=== PATIENT | male | born 1955 | race Caucasian/White ===

== ENCOUNTER → 2018-02-25 11:46 | Outpatient (CLI) | payer OTHER, SELFPAY ==
[2018-02-25 13:03] LABS: Appearance Urine UA CLEAR; Bilirubin Urine UA NEGATIVE (NEGATIVE); Color Urine UA YELLOW; Glucose Urine UA NEGATIVE (Normal); Ketones Urine UA NEGATIVE (NEGATIVE); Leukocyte Esterase Urine UA 2+ (NEGATIVE); Nitrite Urine UA POSITIVE (Negative); Occult Blood Urine UA TRACE-LYSED (Negative); Protein Urine UA TRACE (Negative); Specific Gravity Urine UA <=1.005 (1.000-1.035)
[2018-02-25 13:19] LABS: Bacteria Urine Many (>30); RBC Urine 0-1/HPF (0-5/HPF); Urine Comments CULTURE ORDERED; WBC Urine 30-100/HPF (0-5/HPF)
== END ==
PROVIDERS: Family Provider Family Medicine; PCP Family Medicine; Visit Provider Family Medicine
DX: R31.9 Hematuria, unspecified (principal)
CPT/HCPCS: 81001; 87077; 87086; 87186

== ENCOUNTER 2018-02-26 11:52 | Observation (INO) | payer OTHER, SELFPAY ==
[2018-02-26] VITALS (8 sets, daily range): BP systolic 116–161; BP diastolic 72–87; PULSE 55–62; RESP 14–20; TEMP 36.1–37.1; O2SAT 95–99; BMI 30.9
--- NOTE | 2018-02-26 12:31 | ED_ITS ---
HPI - Male Genitourinary General Chief complaint: Urogenital-Male Stated complaint: IV ANTIBIOTICS Time Seen by Provider: 02/26/18 12:07 Source: patient Mode of arrival: ambulatory Limitations: no limitations History of Present Illness HPI Narrative: Patient is a 62-year-old male sent in from primary concern for UTI and prostatitis. He has had fevers confusion and overall weakness for the last 2-3 days. Along with dysuria, urgency and frequency along with nocturia 8 times night. He actually had blood work yesterday which showed worsening creatinine and elevated PSA. His urine actually did grow gram-negative bacilli. He comes in today he has not yet started his antibiotics but overall just feeling weak and tired. His noticed that he is not getting up and going to the restroom and may be a little more confused than normal. I did speak to the primary who did a prostate exam yesterday she felt that it was the right side was slightly in the large but not really bother the. He is noted to have an elevated PSA of 9.5. Related Data Home Medications Medication Instructions Recorded Confirmed allopurinol 300 mg PO DAILY 02/26/18 02/26/18 aspirin 81 mg PO DAILY 02/26/18 02/26/18 atorvastatin 10 mg PO QPM 02/26/18 02/26/18 cholecalciferol (vitamin D3) 1,000 unit PO QPM 02/26/18 02/26/18 [Vitamin D3] divalproex [Depakote] 1 tab PO QAM 02/26/18 02/26/18 divalproex [Depakote] 2 tab PO QPM 02/26/18 02/26/18 latanoprost 1 drp OPHTHALMIC (EYE) QPM 02/26/18 02/26/18 timolol maleate 1 drp EYE-RIGHT QAM 02/26/18 02/26/18 Allergies Allergy/AdvReac Type Severity Reaction Status Date / Time bee venom protein (honey bee) Allergy Verified 02/26/18 13:02 diclofenac [From Flector] Allergy Verified 02/26/18 13:02 furosemide [From Lasix] AdvReac Verified 02/26/18 13:02 indomethacin [From Indocin] AdvReac Verified 02/26/18 13:02 lisinopril AdvReac Verified 02/26/18 13:02 Review of Systems Review of Systems All systems reviewed & are unremarkable except as noted in HPI and below Constitutional Reports chills, Reports fatigue, Reports fever(s) and Reports lethargy Cardiovascular Denies chest pain, Denies claudication, Denies dyspnea and Denies dyspnea on exertion Respiratory Denies cough, Denies dyspnea, Denies dyspnea on exertion and Denies wheezing Gastrointestinal Gastrointestinal: Denies abdominal pain, Denies change in bowel habits, Denies diarrhea, Denies nausea and Denies vomiting Genitourinary Reports as per HPI Musculoskeletal Denies back pain, Denies muscle weakness, Denies numbness and Denies tingling Neurologic Denies numbness and Denies tingling Endocrine Reports fatigue Allergic/Immunologic Denies wheezing [facility] Medical History Bipolar 1 disorder (Acute) Glaucoma (Acute) Gout (Acute) Exam Initial Vital Signs Initial Vital Signs: Vital Signs Temperature 96.9 F L 02/26/18 11:55 Pulse Rate 56 L 02/26/18 11:55 Respiratory Rate 14 02/26/18 11:55 Blood Pressure 149/80 H 02/26/18 11:55 Pulse Oximetry 97 02/26/18 11:55 GENERAL: Week alert male in no acute distress HEENT: Head atraumatic,EOMI, pupils reactive, neck is supple no meningeal sign CARDIOVASCULAR: Regular rate and rhythm without murmurs, rubs or gallops. RESPIRATORY: Breath sounds equal bilaterally, no wheezes rales or rhonchi. ABDOMEN: Soft, nontender. Normoactive bowel sounds all 4 quadrants. No guarding or rebound. : No CVA tenderness EXTREMITIES: Normal range of motion, no clubbing or edema. Neurovascularly intact NEUROLOGICAL: Alert and oriented x4. Cranial nerves II through XII grossly intact. SKIN: Warm, dry, no laceration, no petechiae, no rashes or lesions. Course Orders Ordered: ED Orders 02/26/18 12:32 Complete Blood Count AUTO DIFF Stat Comprehensive Metabolic Panel Stat Lactate (Lactic Acid) Stat Partial Thromboplastin Time Stat Procalcitonin Stat Prothrombin Time INR Stat 02/26/18 13:25 Blood Culture Stat Discontinued Medications Sodium Chloride (Normal Saline 0.9%) 1,000 mls @ 1,000 mls/hr IV BOLUS ONE Stop: 02/26/18 13:30 Last Infusion: 02/26/18 14:14 Dose: 0 mls/hr Admin: 02/26/18 12:53 Dose: 1,000 mls/hr Levofloxacin (Levaquin) 750 mg in 150 mls @ 100 mls/hr IV NOW ONE Stop: 02/26/18 14:50 Last Infusion: 02/26/18 14:34 Dose: 100 mls/hr Admin: 02/26/18 13:27 Dose: 100 mls/hr Vital Signs - 8 hr 02/26/18 11:55 02/26/18 13:18 02/26/18 14:11 Temperature 96.9 F L Pulse Rate 56 L 61 58 L Respiratory Rate 14 15 17 Blood Pressure 149/80 H Blood Pressure [Right Arm] 156/84 H 147/84 H Pulse Oximetry 97 99 99 02/26/18 14:53 Temperature 97.0 F L Pulse Rate 55 L Respiratory Rate 18 Blood Pressure 148/86 H Blood Pressure [Right Arm] Pulse Oximetry 95 MDM - Male Genitourinary Lab Data Attestation: I reviewed the patient's lab results. Result diagrams: 02/26/18 12:32 02/26/18 12:32 Lab Results 02/26/18 02/26/18 02/26/18 Range/Units 12:32 12:32 12:32 WBC 2.7 L (4.5-11.0) X10^3/uL RBC 4.15 L (4.5-5.9) X10^6/uL Hgb 12.8 L (13.5-17.5) g/dL Hct 38.7 L (41-53) % MCV 93.3 (80-100) fL MCH 30.8 (26-34) PG MCHC 33.0 (30-36) % RDW 15.5 H (11.6-14.8) % Plt Count 141 L (150-400) X10^3/uL Neut % (Auto) Not Reportable Lymph % (Auto) Not Reportable [place] % (Auto) Not Reportable Eos % (Auto) Not Reportable Baso % (Auto) Not Reportable Total Counted 100 Seg Neutrophils % 45.0 (38-70) % Band Neutrophils % 11.0 H (3-7) % Lymphocytes % (Manual) 23.0 L (25-45) % Monocytes % (Manual) 19.0 H (2-11) % Eosinophils % (Manual) 1.0 L (2-4) % Basophils % (Manual) 1.0 (0-1) % Neutrophils # (Manual) 1512 L (7214-9207) /uL RBC Morphology Normal morphology PT 12.0 (10.1-12.7) SECONDS INR 1.1 (0.9-1.3) APTT 29 (26.4-36.2) SECONDS Sodium (137-145) mmol/L Potassium (3.4-5.1) mmol/L Chloride (98-107) mmol/L Carbon Dioxide (22-32) mmol/L BUN (9-20) mg/dL Creatinine (0.66-1.25) mg/dL Estimated GFR (>60) mL/min BUN/Creatinine Ratio (6-22) Glucose (80-110) mg/dL Lactate (0.7-2.1) mmol/L Calcium (8.4-10.2) mg/dL Total Bilirubin (0.2-1.3) mg/dL AST (17-59) IU/L ALT (21-72) IU/L Alkaline Phosphatase (38-126) U/L Total Protein (6.3-8.2) g/dL Albumin (3.5-5.0) g/dL Globulin (1.7-4.1) g/dL Albumin/Globulin Ratio (1.0-2.8) Procalcitonin 0.59 H (<0.5) ng/mL 02/26/18 02/26/18 Range/Units 12:32 12:32 WBC (4.5-11.0) X10^3/uL RBC (4.5-5.9) X10^6/uL Hgb (13.5-17.5) g/dL Hct (41-53) % MCV (80-100) fL MCH (26-34) PG MCHC (30-36) % RDW (11.6-14.8) % Plt Count (150-400) X10^3/uL Neut % (Auto) Lymph % (Auto) [place] % (Auto) Eos % (Auto) Baso % (Auto) Total Counted Seg Neutrophils % (38-70) % Band Neutrophils % (3-7) % Lymphocytes % (Manual) (25-45) % Monocytes % (Manual) (2-11) % Eosinophils % (Manual) (2-4) % Basophils % (Manual) (0-1) % Neutrophils # (Manual) (4054-5453) /uL RBC Morphology PT (10.1-12.7) SECONDS INR (0.9-1.3) APTT (26.4-36.2) SECONDS Sodium 145 (137-145) mmol/L Potassium 4.4 (3.4-5.1) mmol/L Chloride 108 H (98-107) mmol/L Carbon Dioxide 26 (22-32) mmol/L BUN 32 H (9-20) mg/dL Creatinine 2.00 H (0.66-1.25) mg/dL Estimated GFR 34.0 L (>60) mL/min BUN/Creatinine Ratio 16.0 (6-22) Glucose 101 (80-110) mg/dL Lactate 0.9 (0.7-2.1) mmol/L Calcium 9.3 (8.4-10.2) mg/dL Total Bilirubin 0.4 (0.2-1.3) mg/dL AST 80 H (17-59) IU/L ALT 99 H (21-72) IU/L Alkaline Phosphatase 59 (38-126) U/L Total Protein 6.4 (6.3-8.2) g/dL Albumin 3.6 (3.5-5.0) g/dL Globulin 2.8 (1.7-4.1) g/dL Albumin/Globulin Ratio 1.3 (1.0-2.8) Procalcitonin (<0.5) ng/mL MDM Narrative Medical decision making narrative: Patient is leukopenic similar to yesterday. In 2017 he had a white count of 6.7. So this does not appear chronic. Yesterday was Creatine 2.11 today is is improved to 2.0. According to primary baseline is about 1.9. Not too worried about his kidney's today. Lactic acid is normal. Patient is not tachycardic or hypotensive doen't appear septic. However elevated procalcitonin and gram-negative bacteria in his urine likely UTI prostatitis. Patient has confusion weakness. Family uncomfortable taking him. Dr. Hernandez has accepted him to observation Discharge Plan Departure Patient Disposition: Admitted as Observation Clinical Impression: Urinary tract infection, Prostatitis Discharge Date/Time: 02/26/18 14:37 Interventions: ED Discharge Assessment Last Done: 02/26/18 14:37 Admit Date/Time: 02/26/18 14:17 Admit Provider: Susanne Hernandez
[2018-02-26] MEDS: SODIUM CHLORIDE 0.9% 1,000 ML 1000 ML IV (12:53)
--- NOTE | 2018-02-26 12:54 | PC.NURSE ---
Was seen yesterday by Savioana Purcell doctor. 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 Minerva worse today and was told to come to ED. Feeling exhausted, appetite is down, having episodes of sweats and chills.
[2018-02-26 13:01] LABS: Hematocrit 38.7 % (41-53); Hemoglobin 12.8 g/dL (13.5-17.5); Mean Corpuscular Hemoglobin 30.8 PG (26-34); Mean Corpuscular Volume 93.3 fL (80-100); Platelet Count 141 X10^3/uL (150-400); Red Blood Cell Count 4.15 X10^6/uL (4.5-5.9); Red Cell Distribution Width 15.5 % (11.6-14.8); White Blood Cell Count 2.7 X10^3/uL (4.5-11.0)
[2018-02-26 13:02] LABS: Add Manual Diff / Slide Review YES
[2018-02-26 13:06] LABS: INR 1.1 (0.9-1.3)
[2018-02-26 13:08] LABS: PTT Partial Thromboplastin Tim 29 SECONDS (26.4-36.2)
[2018-02-26 13:11] LABS: Alanine Aminotransferase 99 IU/L (21-72); Albumin 3.6 g/dL (3.5-5.0); Albumin Globulin Ratio 1.3 (1.0-2.8); Alkaline Phosphatase 59 U/L (38-126); Aspartate Aminotransferase 80 IU/L (17-59); Bilirubin Total 0.4 mg/dL (0.2-1.3); Blood Urea Nitrogen 32 mg/dL (9-20); Calcium 9.3 mg/dL (8.4-10.2); Carbon Dioxide 26 mmol/L (22-32); Chloride 108 mmol/L (98-107); Globulin 2.8 g/dL (1.7-4.1); Glucose 101 mg/dL (80-110); HEMOLYSIS < 15 (0-50); Lactate (Lactic Acid) 0.9 mmol/L (0.7-2.1); Potassium 4.4 mmol/L (3.4-5.1); Sodium 145 mmol/L (137-145); Total Protein 6.4 g/dL (6.3-8.2)
[2018-02-26 13:27] LABS: Neutrophils Absolute Manual 1512 /uL (3000-5900); Total Cells Counted 100
[2018-02-26] MEDS: levoFLOXacin 750 MG/150 ML PIGGYBACK 100 MG IV (13:27)
[2018-02-26 13:28] LABS: RBC Morphology Normal Morphology
[2018-02-26 13:46] LABS: Procalcitonin 0.59 ng/mL (<0.5)
--- NOTE | 2018-02-26 16:11 | PM.HP.1 ---
History of Present Illness Date Patient Seen: 02/26/18 Chief complaint: IV ANTIBIOTICS Narrative: Patient presented to his PCP with complaints of dysuria, frequency, and urgency yesterday. He had a prescription for antibiotics but it did not get filled. Patient continued to have fever, rigors, and malaise. As he continued to feel poorly he presented tot he ED for evaluation. The patient was found to have gram negative rods growing in the urine. He was brought into the hospital for observation Patient History Medical History Bipolar 1 disorder (Acute) Glaucoma (Acute) Gout (Acute) Hyperlipidemia (Acute) Family & Social History Social History: household members spouse,family Prior Living Arrangements House Safety & Behavioral: Feels Safe in Current Yes Environment Been Physically Hurt or No Threatened By a Person Suicidal Ideation Description None Suicide Plan Description No Plan Tobacco & Substance use: Smoking Status Former smoker alcohol intake former Meds Home Medications Medication Instructions Recorded Confirmed Type allopurinol 300 mg PO DAILY 02/26/18 02/26/18 History aspirin 81 mg PO DAILY 02/26/18 02/26/18 History atorvastatin 10 mg PO QPM 02/26/18 02/26/18 History cholecalciferol (vitamin D3) 1,000 unit PO QPM 02/26/18 02/26/18 History [Vitamin D3] divalproex [Depakote] 1 tab PO QAM 02/26/18 02/26/18 History divalproex [Depakote] 2 tab PO QPM 02/26/18 02/26/18 History latanoprost 1 drp OPHTHALMIC (EYE) QPM 02/26/18 02/26/18 History timolol maleate 1 drp EYE-RIGHT QAM 02/26/18 02/26/18 History Allergies Allergy/AdvReac Type Severity Reaction Status Date / Time bee venom protein (honey bee) Allergy Verified 02/26/18 13:02 diclofenac [From Flector] Allergy Verified 02/26/18 13:02 shellfish derived AdvReac Intermediate gout Verified 02/26/18 15:36 furosemide [From Lasix] AdvReac Verified 02/26/18 13:02 indomethacin [From Indocin] AdvReac Verified 02/26/18 13:02 lisinopril AdvReac Verified 09/11/18 13:02 Review of Systems Review of Systems All systems reviewed & are unremarkable except as noted in HPI and below Exam Vital Signs (past 8 hours): - 02/26/18 11:55 02/26/18 13:18 02/26/18 14:11 Temperature 96.9 F L Pulse Rate 56 L 61 58 L Respiratory Rate 14 15 17 Blood Pressure 149/80 H Blood Pressure [Right Arm] 156/84 H 147/84 H Pulse Oximetry 97 99 99 02/26/18 14:53 Temperature 97.0 F L Pulse Rate 55 L Respiratory Rate 18 Blood Pressure 148/86 H Blood Pressure [Right Arm] Pulse Oximetry 95 Oxygen Delivery Method Room Air Oxygen Flow Rate 0 Narrative Exam Narrative: HEENT: NC/AT, EOMI, ORohparynx clear, Neck supple without adenopathy Lungs: Clear to auscultation CV: RRR nl Sl S2 Abd: Soft/ non tender non distended, no CVAT EXT: brown discoloration of both lower extremities, no edema or cyanosis Neuro: non focal Objective Labs Result Diagrams: 02/26/18 12:32 02/26/18 12:32 Labs: Laboratory Results - last 24 hr 02/26/18 02/26/18 02/26/18 12:32 12:32 12:32 WBC 2.7 L RBC 4.15 L Hgb 12.8 L Hct 38.7 L MCV 93.3 MCH 30.8 MCHC 33.0 RDW 15.5 H Plt Count 141 L Neut % (Auto) Not Reportable Lymph % (Auto) Not Reportable [place] % (Auto) Not Reportable Eos % (Auto) Not Reportable Baso % (Auto) Not Reportable Total Counted 100 Seg Neutrophils % 45.0 Band Neutrophils % 11.0 H Lymphocytes % (Manual) 23.0 L Monocytes % (Manual) 19.0 H Eosinophils % (Manual) 1.0 L Basophils % (Manual) 1.0 Neutrophils # (Manual) 1512 L RBC Morphology Normal morphology PT 12.0 INR 1.1 APTT 29 Sodium Potassium Chloride Carbon Dioxide BUN Creatinine Estimated GFR BUN/Creatinine Ratio Glucose Lactate Calcium Total Bilirubin AST ALT Alkaline Phosphatase Total Protein Albumin Globulin Albumin/Globulin Ratio Procalcitonin 0.59 H 02/26/18 02/26/18 12:32 12:32 WBC RBC Hgb Hct MCV MCH MCHC RDW Plt Count Neut % (Auto) Lymph % (Auto) [place] % (Auto) Eos % (Auto) Baso % (Auto) Total Counted Seg Neutrophils % Band Neutrophils % Lymphocytes % (Manual) Monocytes % (Manual) Eosinophils % (Manual) Basophils % (Manual) Neutrophils # (Manual) RBC Morphology PT INR APTT Sodium 145 Potassium 4.4 Chloride 108 H Carbon Dioxide 26 BUN 32 H Creatinine 2.00 H Estimated GFR 34.0 L BUN/Creatinine Ratio 16.0 Glucose 101 Lactate 0.9 Calcium 9.3 Total Bilirubin 0.4 AST 80 H ALT 99 H Alkaline Phosphatase 59 Total Protein 6.4 Albumin 3.6 Globulin 2.8 Albumin/Globulin Ratio 1.3 Procalcitonin Assessment & Plan (1) Urinary tract infection: Problem details: Continue Levofloxacin as ordered in the ED Will await culture and sensitivity results Qualifiers: Encounter type: Hematuria presence: without hematuria Indwelling urinary catheter type: Urinary tract infection type: acute cystitis Qualified Code(s): N30.00 - Acute cystitis without hematuria Current visit: Yes Status: Acute (2) Prostatitis: Problem details: Continue levofloxacin as above Qualifiers: Prostatitis type: acute Qualified Code(s): N41.0 - Acute prostatitis Current visit: Yes Status: Acute (3) Bipolar affective disorder: Problem details: Continue depakote Current visit: Yes Status: Acute (4) Hyperlipidemia: Problem details: Continue statin Current visit: Yes Status: Acute (5) Gout: Problem details: Continue allopurinol Current visit: Yes Status: Acute (6) Chronic renal failure, stage 3 (moderate): Problem details: Will follow closely Current visit: Yes Status: Acute Quality VTE Deep Vein Thrombosis/Pulmonary Embolism Present on Admission: No
[2018-02-26] MEDS: DEXTROSE 5%-0.45% NS 1,000 ML 100 ML IV (16:57)
[2018-02-26] MEDS: ATORVASTATIN 10 MG TABLET PO (20:23)
[2018-02-26] MEDS: DIVALPROEX ER 250 MG TAB 1000 MG PO (20:23)
[2018-02-26] MEDS: LATANOPROST 0.005% OPHTH 2.5 ML 1 DROPS EYE-RIGHT (20:23)
--- NOTE | 2018-02-26 22:03 | PC.NURSE ---
Patient note: Marcus admitted to rm 204 around 1500. Ox3, denied pain, conversive with staff members. IV Levaquin brought with him from ER completed. Dr Hernandez in to see patient. IVF infusing as ordered. He is tolerating PO's, voiding and denies needs or concerns.
[2018-02-27 00:40] VITALS: O2SAT 94
--- NOTE | 2018-02-27 00:55 | PC.NURSE ---
Addendum entered by Nicholas Rollins R.N. 02/27/18 06:18: 0600:Pt slept intermittently, declined any medication except Tylenol. Original Note: Retail Assistant Note: 0040: Awake, resting in bed. resting at bedside. IV in place in rt wrist with D5 1/2NS infusing at 100cc/hr. Pt denies pain, states he feels better than yesterday.
[2018-02-27] MEDS: ACETAMINOPHEN 325 MG TABLET 650 MG PO (02:12)
[2018-02-27] MEDS: DEXTROSE 5%-0.45% NS 1,000 ML 100 ML IV (02:57)
[2018-02-27 03:25] VITALS: BP 135/75; PULSE 57; RESP 16; TEMP 36.4; O2SAT 96
[2018-02-27 07:21] VITALS: BP 134/76; PULSE 56; RESP 20; TEMP 36.4; O2SAT 97
[2018-02-27] MEDS: DIVALPROEX ER 250 MG TAB 500 MG PO (08:05)
[2018-02-27] MEDS: ALLOPURINOL 300 MG TABLET PO (08:05)
[2018-02-27] MEDS: TIMOLOL 0.5% OPHTH 1 DROPS EYE-RIGHT (08:05)
[2018-02-27] MEDS: ENOXAPARIN 40 MG/0.4 ML SYRINGE SUBCUT (08:05)
[2018-02-27] MEDS: ASPIRIN EC 81 MG TABLET PO (08:05)
[2018-02-27] MEDS: CHOLECALCIFEROL (VITAMIN D3) 1,000 UNIT TABLET 1000 UNIT PO (08:05)
[2018-02-27 08:16] VITALS: O2SAT 96
--- NOTE | 2018-02-27 08:53 | PM.DS.1 ---
History of Present Illness Chief complaint: IV ANTIBIOTICS Narrative: Patient presented to his PCP with complaints of dysuria, frequency, and urgency yesterday. He had a prescription for antibiotics but it did not get filled. Patient continued to have fever, rigors, and malaise. As he continued to feel poorly he presented tot he ED for evaluation. The patient was found to have gram negative rods growing in the urine. He was brought into the hospital for observation Discharge Providers Date of admission: 02/26/18 14:17 Primary care physician: Jacquelyn Han MD Discharge provider: Susanne Hernandez MD Summary Discharge Diagnosis: Urinary tract infection Prostatitis Bipolar Affective Disorder Hyperlipidemia Glaucoma Hospital Course: Patient was brought into the hospital and placed on levofloxacin. He had no further fever/rigors/or chills His urine grew ECOLI which is pansensitive. He has a prescription from his PCP at the pharmacy for Cipro 500mg twice daily for 7 days. Patient ate breakfast and is deemed appropriate for discharge home. Status at Discharge Functional status at discharge: independent ambulation Overall status at discharge: patient is back to baseline Time Spent with Patient Less than 30 minutes Exam Vital Signs (past 8 hours): - 02/27/18 03:25 02/27/18 07:21 02/27/18 08:16 Temperature 97.5 F L 97.5 F L Pulse Rate 57 L 56 L Respiratory Rate 16 20 Blood Pressure 135/75 134/76 Pulse Oximetry 96 97 96 Oxygen Delivery Method Room Air Oxygen Flow Rate 0 Narrative Exam Narrative: Lungs: Clear to auscultation CV: RRR nl Sl S2 ABd: soft/non tender non distended Ext: no edema Objective Labs Result Diagrams: 02/26/18 12:32 02/26/18 12:32 Labs: Laboratory Results - last 24 hr 02/26/18 02/26/18 02/26/18 12:32 12:32 12:32 WBC 2.7 L RBC 4.15 L Hgb 12.8 L Hct 38.7 L MCV 93.3 MCH 30.8 MCHC 33.0 RDW 15.5 H Plt Count 141 L Neut % (Auto) Not Reportable Lymph % (Auto) Not Reportable [place] % (Auto) Not Reportable Eos % (Auto) Not Reportable Baso % (Auto) Not Reportable Total Counted 100 Seg Neutrophils % 45.0 Band Neutrophils % 11.0 H Lymphocytes % (Manual) 23.0 L Monocytes % (Manual) 19.0 H Eosinophils % (Manual) 1.0 L Basophils % (Manual) 1.0 Neutrophils # (Manual) 1512 L RBC Morphology Normal morphology PT 12.0 INR 1.1 APTT 29 Sodium Potassium Chloride Carbon Dioxide BUN Creatinine Estimated GFR BUN/Creatinine Ratio Glucose Lactate Calcium Total Bilirubin AST ALT Alkaline Phosphatase Total Protein Albumin Globulin Albumin/Globulin Ratio Procalcitonin 0.59 H 02/26/18 02/26/18 12:32 12:32 WBC RBC Hgb Hct MCV MCH MCHC RDW Plt Count Neut % (Auto) Lymph % (Auto) [place] % (Auto) Eos % (Auto) Baso % (Auto) Total Counted Seg Neutrophils % Band Neutrophils % Lymphocytes % (Manual) Monocytes % (Manual) Eosinophils % (Manual) Basophils % (Manual) Neutrophils # (Manual) RBC Morphology PT INR APTT Sodium 145 Potassium 4.4 Chloride 108 H Carbon Dioxide 26 BUN 32 H Creatinine 2.00 H Estimated GFR 34.0 L BUN/Creatinine Ratio 16.0 Glucose 101 Lactate 0.9 Calcium 9.3 Total Bilirubin 0.4 AST 80 H ALT 99 H Alkaline Phosphatase 59 Total Protein 6.4 Albumin 3.6 Globulin 2.8 Albumin/Globulin Ratio 1.3 Procalcitonin Discharge Plan Discharge Plan Discharge Problem: Urinary tract infection, Prostatitis Patient Disposition: Home Under care of provider: Dr. Jacquelyn Han Transportation: Private vehicle Discharge comment: Patient should follow up with his PCP after completion of his antibiotics I certify the postop hospital usp care is medically necessary on a continuing basis for any conditions for which he/ she received care during this hospitalization.: No The receiving facility has agreed to accept transfer and provide medical treatment.: No Discharge Med Rec/Prescriptions Prescriptions: No Action latanoprost 0.005 % Drops 1 drp ophthalmic (eye) QPM RF: 0 atorvastatin 10 mg Tablet 10 mg PO QPM RF: 0 divalproex [Depakote] 500 mg Tablet,Delayed Release (Dr/Ec) 1 tab PO QAM RF: 0 divalproex [Depakote] 500 mg Tablet,Delayed Release (Dr/Ec) 2 tab PO QPM RF: 0 aspirin 81 mg Tablet,Delayed Release (Dr/Ec) 81 mg PO DAILY RF: 0 allopurinol 300 mg Tablet 300 mg PO DAILY RF: 0 cholecalciferol (vitamin D3) [Vitamin D3] 1,000 unit Capsule 1,000 unit PO QPM RF: 0 timolol maleate 0.5 % Drops, Once Daily 1 drp EYE-RIGHT QAM RF: 0 Provider Discharge Instructions Diet: Regular Liquid consistency: Normal/Thin Food texture: Regular Activity: as tolerated Skin/Wound/Dressing Care Report to your healthcare provider any signs of infection, such as:: chills, fever and night sweats Discharge Data Primary Care Provider: Jacquelyn Han Attending Provider: Susanne Hernandez Admroselia Date/Time: 02/26/18 14:17 Quality VTE Deep Vein Thrombosis/Pulmonary Embolism Present on Admission: No
[2018-02-27 09:25] LABS: BUN Creatinine Ratio 16.7 (6-22); Blood Urea Nitrogen 30 mg/dL (9-20); Calcium 8.9 mg/dL (8.4-10.2); Carbon Dioxide 27 mmol/L (22-32); Chloride 108 mmol/L (98-107); Estimated Glomerular Filt Rate 38.4 mL/min (>60); Glucose 115 mg/dL (80-110); HEMOLYSIS < 15 (0-50); Potassium 4.4 mmol/L (3.4-5.1); Sodium 145 mmol/L (137-145)
--- NOTE | 2018-02-27 11:31 | CM.DANOTE ---
DCP Chart Review/Discharge Home Patient is a 62 year old male who was admitted on 02/26/18 for IV-Abx. Pt has [employer] for insurance and his PCP is Dr. Han. EMR was reviewed. Per MD, pt was on IV-Abx and waiting for cultures to determine if pt could be switched to oral medication. Per MD, pt medically stable to d/c home with family on oral medication and no identified barriers to discharge. Per RN, pt had family bedside and was independent in room and no concerns at this time. SW attempted bedside assessment and pt was already off the floor and discharged home. Plan: Patient discharged home today via family POV and no SW needs. YAMILEX Denis
== END 2018-02-27 10:01 | disposition home or self-care (01) ==
LOC: ED 14:11 → AC 14:19
PROVIDERS: Admitting Provider Internal Medicine; Emergency Provider Emergency Medicine; Family Provider Family Medicine; PCP Family Medicine; Visit Provider Internal Medicine
DX: N30.00 Acute cystitis without hematuria (principal); R30.0 Dysuria; N41.0 Acute prostatitis; E78.5 Hyperlipidemia, unspecified; Z87.891 Personal history of nicotine dependence; F31.9 Bipolar disorder, unspecified; H40.9 Unspecified glaucoma
CPT/HCPCS: 36415; 36591; 80048; 80053; 83605; 84145; 85025; 85610; 85730; 87040; 94762; 96365; 99283; 99285; G0378; J1650; J1956

== ENCOUNTER 2019-05-08 13:02 | Day surgery (SDC) | payer OTHER, SELFPAY ==
[2018-02-26 15:29] VITALS: BMI 30.9
--- NOTE | 2019-05-08 | PATH_ITS ---
[facility] Accession Number: [id number] . 01 Material submitted: . cecum - CECAL POLYP . 02 Diagnosis: Cecum, Polyp, Biopsy: Tubular adenoma. MRV 05/09/2019 1001 Local . 02 Electronically signed: . Yamileth Rowley MD, Pathologist NPI- [id number] . 01 Gross description: . CECAL POLYP: Received in formalin is 1 fragment(s) of cao, soft tissue measuring 0.1 x 0.1 x 0.1 cm submitted entirely in 1 cassette(s) /[facility] 05/08/20192019 Local . 02 Pathologist provided ICD-10: D12.0 . 02 CPT . 663233 Performed at: 01 [facility] [address] [id number] MD Henry Uribe MD Phone: [phone] Performed at: 02 [facility] [address] [place], [place] [id number] MD Yamileth Rowley MD Phone: [phone]
[2019-05-08 13:36] VITALS: BP 155/83; PULSE 56; RESP 15; TEMP 36; O2SAT 96; BMI 31.4
[2019-05-08] MEDS: SODIUM CHLORIDE 0.9% 1,000 ML 200 ML IV (13:45)
--- NOTE | 2019-05-08 14:04 | PM.HP.1 ---
History of Present Illness History of Present Illness Date Patient Seen: 05/08/19 Time Patient Seen: 14:09 Chief complaint: [id number] Narrative: Patient presents for colorectal screening. They have never had any previous examination for such. On further history denies any recent gastrointestinal symptoms. No nausea, vomiting, abdominal pain, loss of appetite, unexplained weight loss, change in bowel habits, diarrhea, constipation, melena, hematochezia, or bright red blood per rectum. Patient History Medical History Bipolar 1 disorder (Acute) Glaucoma (Acute) Gout (Acute) Hyperlipidemia (Acute) Family & Social History Family History Mother Lymphoma Leukemia Other Diabetes mellitus Heart disease Social History: household members spouse,family Tobacco & Substance use: Smoking Status Former smoker alcohol intake former Meds Home Medications and Allergies Home Medications Medication Instructions Recorded Confirmed Type allopurinol 300 mg PO DAILY 02/26/18 05/08/19 History aspirin 81 mg PO DAILY 02/26/18 05/08/19 History atorvastatin 10 mg PO QPM 02/26/18 05/08/19 History cholecalciferol (vitamin D3) 1,000 unit PO QPM 02/26/18 05/08/19 History [Vitamin D3] divalproex [Depakote] 1 tab PO QAM 02/26/18 05/08/19 History divalproex [Depakote] 2 tab PO QPM 02/26/18 05/08/19 History latanoprost 1 drp OPHTHALMIC (EYE) QPM 02/26/18 05/08/19 History timolol maleate 1 drp EYE-RIGHT QAM 02/26/18 05/08/19 History ciprofloxacin HCl 500 mg PO BID #14 tab 02/27/18 05/08/19 Rx Allergies Allergy/AdvReac Type Severity Reaction Status Date / Time bee venom protein (honey bee) Allergy swelling Verified 05/08/19 13:32 diclofenac [From Flector] Allergy unknown Verified 05/08/19 13:32 shellfish derived AdvReac Intermediate gout Verified 02/26/18 15:36 furosemide [From Lasix] AdvReac unknown Verified 05/08/19 13:32 indomethacin [From Indocin] AdvReac unknown Verified 05/08/19 13:32 lisinopril AdvReac unknown Verified 05/08/19 13:32 Review of Systems Review of Systems Narrative: A complete review of systems is negative except as noted in the HPI Exam Vital Signs (past 8 hours): - 05/08/19 13:36 Temperature 96.8 F L Pulse Rate 56 L Respiratory Rate 15 Blood Pressure 155/83 H Pulse Oximetry 96 Oxygen Delivery Method Room Air Narrative Exam Narrative: General-no acute distress, well nourished HEENT-moist mucous membranes, no scleral icterus Neck-supple, no lymphadenopathy Chest- non labored respirations, clear to auscultation bilaterally Cardiac-regular rate no peripheral edema Abdomen-soft, nontender, non distended Extremities-warm, well perfused Neurological-alert and oriented, no focal deficits Assessment & Plan Assessment and plan (1) Screening for colon cancer: Problem details: The patient requires colorectal screening and colonoscopy is recommended. Technical details were discussed. Risks, benefits, alternatives explained. Risks including but not limited to myocardial infarction, aspiration, bleeding, pain, missed lesion, incomplete examination, need for further radiographic studies, colonic perforation, and need for major abdominal surgery were discussed. All questions were answered to their satisfaction, and they are in agreement with this plan. Current visit: Yes Status: Acute Assessment & Plan narrative: Insert endoscopy assessment plan
[2019-05-08] MEDS: fentaNYL 250 MCG/5 ML INJ IV (14:17)
[2019-05-08] MEDS: MIDAZOLAM 5 MG/5 ML VIAL IV (14:17)
--- NOTE | 2019-05-08 14:43 | PM.OP.ENDO ---
Operative Date/Time/Diagnoses Date of procedure: 05/08/19 Time of procedure: 14:43 Pre-op diagnosis: screening colonoscopy Post-op diagnosis: same Procedure & Clinicians Study performed: Colonoscopy Same procedure as scheduled: Yes Indications: 64-year-old male no previous colonoscopy presents for routine screening Surgeon: Jay Marie Procedure Notes SCOAP/Timeout: Performed Procedure in detail: Patient placed in left lateral decubitus position. Time out was performed. Procedural sedation was administered with Versed and Fentanyl. A rectal exam demonstrated no external hemorrhoids no internal masses. Colonoscopy scope was placed into the rectum and advanced through the colon to the cecum. The ileocecal valve was identified. A <1 cm polyp was biopsied at the cecum and site was hemostatic. The scope was then slowly withdrawn examining colon thoroughly in all directions. The colonoscopy was notable for the following 1. Cecal polyp 2. Diverticulosis 3. Moderate quality prep Scope withdrawal time: 12 Sedation minutes: 25 Findings: diverticulosis and polyp Specimen(s): other (cecal polyp) Impression: cecal polyp Post-procedure Recommendations: Colonscopy in 5 years Disposition: same day surgery
[2019-05-08 14:47] VITALS: BP 96/65; PULSE 55; RESP 16; TEMP 36.4; O2SAT 96
[2019-05-08 14:52] VITALS: BP 97/63; PULSE 54; RESP 14; O2SAT 94
[2019-05-08 14:58] VITALS: BP 109/67; PULSE 58; RESP 15; O2SAT 95
[2019-05-08 15:02] VITALS: BP 117/77; PULSE 52; RESP 16; TEMP 36.2; O2SAT 96
[2019-05-08 15:14] VITALS: BP 131/82; PULSE 54; RESP 16; TEMP 35.9; O2SAT 95
== END 2019-05-08 15:30 | disposition home or self-care (01) ==
PROVIDERS: Family Provider Family Medicine; PCP Family Medicine; Visit Provider Surgery
PROC: 0DJD8ZZ Inspection of Lower Intestinal Tract, Via Natural or Artificial Opening Endoscopic (ICD-10-PCS; CPT 45378; principal; 2019-05-08 14:30)
DX: Z12.11 Encounter for screening for malignant neoplasm of colon (principal); K57.30 Diverticulosis of large intestine without perforation or abscess without bleeding; D12.0 Benign neoplasm of cecum; F31.9 Bipolar disorder, unspecified
CPT/HCPCS: 45380; 99152; J2250; J3010

== ENCOUNTER → 2021-02-07 10:53 | Outpatient (CLI) | payer OTHER, SELFPAY ==
[2018-02-26 15:29] VITALS: BMI 30.9
--- NOTE | 2021-02-07 | DI.US.S_ITS ---
PROCEDURE: US PERIPH VENOUS LOW EXTREM BI INDICATIONS: BILATERAL LOWER LEG SWELLING TECHNIQUE: Real-time imaging, as well as color and pulse Doppler interrogation, were performed of the deep veins of both legs from the inguinal ligament to the popliteal fossa. COMPARISON: None. FINDINGS: Right: The common femoral, femoral and popliteal veins are normally compressible, and free of intraluminal thrombus. Color and pulse Doppler demonstrate normal phasic intravascular flow. There is normal augmentation response to distal compression maneuver. 2.8 x 1.6 x 1.5 cm complex fluid is noted in right popliteal fossa. Right lower leg edema is noted. Left: The common femoral, femoral and popliteal veins are normally compressible, and free of intraluminal thrombus. Color and pulse Doppler demonstrate normal phasic intravascular flow. There is normal augmentation response to distal compression maneuver. 2 x 2.4 x 1.3 cm simple appearing fluid collection is noted in left popliteal fossa. Left lower leg edema is also noted. IMPRESSION: 1. No evidence of DVT in visualized bilateral lower extremity veins. 2. Bilateral popliteal cysts as above. Bilateral lower leg edema. Dictated by: Eliseo Perkins M.D. on 02/07/2021 at 13:08 Approved by: Eliseo Perkins M.D. on 02/07/2021 at 13:09
== END ==
PROVIDERS: Family Provider Family Medicine; PCP Family Medicine; Referring Provider Nurse Practitioner Family; Visit Provider Nurse Practitioner Family
DX: R60.0 Localized edema (principal); R68.89 Other general symptoms and signs; M10.9 Gout, unspecified; M71.22 Synovial cyst of popliteal space [Baker], left knee; M71.21 Synovial cyst of popliteal space [Baker], right knee
CPT/HCPCS: 36415; 80053; 84443; 84550; 93970

== ENCOUNTER → 2021-02-07 11:46 | Outpatient (CLI) | payer OTHER, SELFPAY ==
[2018-02-26 15:29] VITALS: BMI 30.9
[2021-02-07 13:31] LABS: Alanine Aminotransferase 25 IU/L (<50); Albumin 3.8 g/dL (3.5-5.0); Albumin Globulin Ratio 1.5 (1.0-2.8); Alkaline Phosphatase 59 U/L (38-126); Aspartate Aminotransferase 29 IU/L (17-59); BUN Creatinine Ratio 17.1 (6-22); Bilirubin Total 0.3 mg/dL (0.2-1.3); Blood Urea Nitrogen 34 mg/dL (9-20); Calcium 9.7 mg/dL (8.4-10.2); Carbon Dioxide 27 mmol/L (22-32); Chloride 112 mmol/L (98-107); Estimated Glomerular Filt Rate 33.9 mL/min (>60); Globulin 2.5 g/dL (1.7-4.1); Glucose 101 mg/dL (80-110); HEMOLYSIS < 15 (0-50); Potassium 4.8 mmol/L (3.4-5.1); Sodium 144 mmol/L (137-145); Total Protein 6.3 g/dL (6.3-8.2); Uric Acid 4.5 mg/dL (3.5-8.5)
[2021-02-07 14:04] LABS: TSH w/ Reflex to FT4 0.85 uIU/mL (0.47-4.68)
== END ==
PROVIDERS: Family Provider Family Medicine; PCP Family Medicine; Referring Provider Nurse Practitioner Family; Visit Provider Nurse Practitioner Family
DX: R68.89 Other general symptoms and signs (principal); M10.9 Gout, unspecified
CPT/HCPCS: 36415; 80053; 84443; 84550

== ENCOUNTER → 2021-03-02 09:51 | Outpatient (CLI) | payer OTHER, SELFPAY ==
[2018-02-26 15:29] VITALS: BMI 30.9
[2021-03-02 11:09] LABS: COVID19 -Nasal RAPID Negative (Negative)
== END ==
PROVIDERS: Family Provider Family Medicine; PCP Family Medicine; Visit Provider Nurse Practitioner Family
DX: Z20.822 Contact with and (suspected) exposure to COVID-19 (principal)
CPT/HCPCS: 87635

== ENCOUNTER → 2021-03-04 08:37 | Outpatient (CLI) | payer OTHER, SELFPAY ==
[2018-02-26 15:29] VITALS: BMI 30.9
--- NOTE | 2021-03-04 20:08 | DI.NM.S_ITS ---
DATE OF SERVICE: 03/04/2021 PROCEDURE PERFORMED: Lexiscan perfusion study. INDICATIONS: Abnormal EKG, hypertension. RADIOPHARMACEUTICAL: 25.3 millicurie technetium-99m Myoview IV was injected at stress and 14.1 millicurie technetium-99m Myoview IV was injected at rest. CARDIAC STRESS: The patient underwent IV Lexiscan perfusion study under the supervision of an attending staff. Baseline rhythm was right bundle branch block, left anterior fascicular block, PVCs and some PACs. During stress, the patient had frequent PACs and PVCs without any ventricular tachycardia or AFib. No convincing ischemic changes seen. No chest pain. [place] lightheadedness. Remained hemodynamically stable. RAW DATA: There is significant increased subdiaphragmatic activity affecting the inferior border of the heart. Patient's weight is 250 pounds. GATED STUDY: Stress LV ejection fraction 54 percent. I do not see any obvious wall motion abnormalities. Resting end-diastolic volume 159 mL. TID ratio 0.92, which is within normal limits. Lung/heart ratio 0.26, which is within normal limits. MYOCARDIAL PERFUSION SCAN: Stress supine and resting supine images were compared to each other. There are no prone images. The stress supine images revealed a small to moderate-sized, mild to moderately decreased perfusion of the inferior wall and inferoapex. Resting supine images revealed moderate-size, moderately severe perfusion defect of inferior wall and inferoapex. Resting perfusion defect appears worse than the stress supine perfusion defect. No convincing ischemia. CONCLUSION: 1. No obvious reversible ischemia. 2. Patient has predominantly fixed inferior wall and inferoapical defect, which appears worse at resting supine images than stress supine images. There is significant subdiaphragmatic activity affecting the inferior border of the heart. Gated study showed no obvious wall motion abnormality and during stress gated study, inferior wall is moving okay. In absence of prone images, hard to distinguish diaphragmatic tissue attenuation artifact versus old inferior and inferoapical myocardial infarction. Correlate clinically. SvetlanaMarcus werner - JUSTINO/adrián/chastity doc#: [id number]/job#: [id number] dd: 03/04/2021 17:51:00 dt: 03/04/2021 19:48:00 DICTATING MD/COPIES TO: Chetan Arroyo MD COPIES MNE: EMA;
== END ==
PROVIDERS: Family Provider Family Medicine; PCP Family Medicine; Referring Provider Nurse Practitioner Family; Visit Provider Nurse Practitioner Family
DX: R68.89 Other general symptoms and signs (principal); Q89.9 Congenital malformation, unspecified
CPT/HCPCS: 78452; 93017; A9502; J2785

== ENCOUNTER → 2021-07-27 12:23 | Outpatient (CLI) | payer OTHER, SELFPAY ==
[2018-02-26 15:29] VITALS: BMI 30.9
--- NOTE | 2021-07-27 | DI.MRI.S_ITS ---
PROCEDURE: MR LUMBAR SPINE WO CON INDICATIONS: Spondylosis lumbar region TECHNIQUE: Noncontrast sagittal T1 spin echo and T2 fast echo, coronal T2, sagittal STIR, axial T1 and T2 fast spin echo through the lumbar spine. COMPARISON: [facility], CR, XR LUMBAR SPINE WITH OBLIQUES PLUS FLEXION EXTENSION, 05/26/2021, 13:14. FINDINGS: Image quality: Excellent. Alignment and Curvature: 5 lumbar type vertebral bodies are present by plain film. There is mild diffuse leftward curvature of the lower lumbar spine. Loss of normal lumbar lordosis. Mild grade 1 retrolisthesis of L2 on L3 and L5 on S1. Bone Marrow: Marrow is of normal overall signal. No acute vertebral body compression fractures. Moderate reactive signal within the endplates adjacent to the L3-L4, L4-L5, and L5-S1 intervertebral discs. Mild reactive signal within the remaining lumbar and lower thoracic endplates. Spinal Cord: Conus medullaris terminates at the lower L1 level. Visualized cord demonstrates normal signal and size. Paraspinous Soft Tissues: No paravertebral masses. T12-L1: Moderate disc height loss and desiccation. Mild diffuse disc bulge. Mild bilateral facet hypertrophy. Mild canal stenosis. Mild bilateral foraminal stenosis. L1-L2: Moderate disc height loss and desiccation. Mild diffuse disc bulge. Mild facet and ligamentum flavum hypertrophy. Mild epidural lipomatosis. Mild canal stenosis. Mild bilateral foraminal stenosis. L2-L3: Mild disc height loss. Moderate disc desiccation. Mild diffuse disc bulge. Mild facet and ligamentum flavum hypertrophy. Mild canal stenosis. Moderate bilateral foraminal stenosis. L3-L4: Severe disc height loss and desiccation. Mild diffuse disc bulge/osteophyte. Mild facet and ligamentum flavum hypertrophy. Moderate canal stenosis. Severe right and moderate left foraminal stenosis. Right L3 nerve root compression. L4-L5: Moderate disc height loss and desiccation. Moderate diffuse disc bulge with superimposed broad-based right far lateral protrusion. Mild facet and ligamentum flavum hypertrophy. Mild epidural lipomatosis. Severe canal stenosis. Severe right greater than left foraminal stenosis with right greater than left L4 nerve root compression. L5-S1: Moderate disc height loss and desiccation. Mild diffuse disc bulge. Mild facet and ligamentum flavum hypertrophy. Mild epidural lipomatosis. Moderate canal stenosis. Moderate to severe right and severe left foraminal stenosis. Left greater than right L5 nerve root compression. IMPRESSION: 1. Multilevel degenerative disc and facet disease, as well as ligamentum flavum hypertrophy and epidural lipomatosis. 2. Multilevel canal stenoses, worst at L4-L5, where there is severe canal stenosis. Moderate canal stenosis at L3-L4 and L5-S1. 3. Multilevel foraminal stenoses, worst at L3-L4, L4-L5, and L5-S1, where there is associated intraforaminal nerve root compression as described above. Recommend correlation with clinical symptoms to ascertain relevance of these findings. Dictated by: Mason Medrano M.D. on 07/27/2021 at 13:29 Approved by: Mason Medrano M.D. on 07/27/2021 at 13:32
== END ==
PROVIDERS: Family Provider Family Medicine; PCP Family Medicine; Referring Provider Physical Medicine & Rehabilitation; Visit Provider Physical Medicine & Rehabilitation
DX: M47.816 Spondylosis without myelopathy or radiculopathy, lumbar region (principal); M51.36 Other intervertebral disc degeneration, lumbar region; M51.37 Other intervertebral disc degeneration, lumbosacral region; M48.061 Spinal stenosis, lumbar region without neurogenic claudication; M48.07 Spinal stenosis, lumbosacral region
CPT/HCPCS: 72148

== ENCOUNTER → 2021-11-01 10:02 | Outpatient (CLI) | payer OTHER, SELFPAY ==
[2018-02-26 15:29] VITALS: BMI 30.9
[2021-10-28 08:35] VITALS: BMI 30.9
[2021-11-01 10:51] LABS: Add Manual Diff / Slide Review NO; Basophils Absolute Auto 0 /uL (0-100); Basophils Percent Auto 1.1 % (0-2); Eosinophils Absolute Auto 200 /uL (0-450); Eosinophils Percent Auto 3.8 % (2-4); Hematocrit 39.1 % (41-53); Lymphocytes Absolute Auto 1400 /uL (1100-4500); Lymphocytes Percent Auto 33.4 % (25-40); Mean Corpuscular HGB Conc 33.3 % (30-36); Mean Corpuscular Hemoglobin 31.2 PG (26-34); Mean Corpuscular Volume 93.7 fL (80-100); Monocytes Absolute Auto 300 /uL (0-900); Monocytes Percent Auto 7.5 % (3-14); Neutrophils Absolute Auto 2300 /uL (1500-7000); Neutrophils Percent Auto 54.2 % (50-75); Platelet Count 175 X10^3/uL (150-400); Red Blood Cell Count 4.17 X10^6/uL (4.5-5.9); Red Cell Distribution Width 16.2 % (11.6-14.8); White Blood Cell Count 4.3 X10^3/uL (4.5-11.0)
[2021-11-01 10:55] LABS: BUN Creatinine Ratio 13.3 (6-22); Blood Urea Nitrogen 29 mg/dL (9-20); Carbon Dioxide 28 mmol/L (22-32); Chloride 111 mmol/L (98-107); Estimated Glomerular Filt Rate 33 mL/min (>60); Glucose 68 mg/dL (80-110); HEMOLYSIS < 15 (0-50); Potassium 4.6 mmol/L (3.4-5.1); Sodium 145 mmol/L (137-145)
--- NOTE | 2021-11-01 14:30 | DI.CT.S_ITS ---
PROCEDURE: CT LUMBAR SPINE WO CON INDICATIONS: Spinal stenosis, lumbar region/pre-op labs+ekg TECHNIQUE: Noncontrast 3 mm thick sections acquired from the T12 level to the sacrum. Sagittal and coronal reformats were constructed. For radiation dose reduction, the following was used: automated exposure control. COMPARISON: [facility], MR, MR LUMBAR SPINE WO CON, 07/27/2021, 12:47. FINDINGS: Image quality: Excellent. Bones: There is trace, approximately 2 millimeters of L2-L3, L4-L5 and L5-S1 retrolisthesis. Convex left curvature of the lumbar spine. No acute vertebral body compression fractures. No suspicious lytic or blastic bony lesions. No pars defects. T12-L1: Slight loss of disc height. Vacuum disc phenomenon. Mild, diffuse disc bulge. Mild bilateral facet hypertrophy. Mild narrowing of the central canal. Mild bilateral neural foraminal narrowing. No neural compression L1-L2: Disc height is normal. Mild, diffuse disc bulge. Mild bilateral facet hypertrophy. Mild narrowing of the central canal. Mild bilateral neural foraminal narrowing. No neural compression. L2-L3: Slight loss of disc height. Vacuum disc phenomenon. Mild to moderate diffuse disc bulge. Mild bilateral facet hypertrophy. Mild ligamentum flavum hypertrophy. Moderate narrowing of the central canal. Moderate bilateral neural foraminal narrowing. No neural compression. L3-L4: Loss of disc height. Posterior disc osteophyte complex. Mild to moderate bilateral facet hypertrophy. Moderate to severe narrowing of the central canal. Severe right and moderate left neural foraminal narrowing with compression of the exiting right L3 nerve root. L4-L5: Loss of disc height. Vacuum disc phenomenon. Moderate, diffuse disc bulge. Moderate bilateral facet hypertrophy. Mild ligamentum flavum hypertrophy. Severe narrowing of the central canal. Severe bilateral neural foraminal narrowing with compression of the exiting L4 nerve roots. L5-S1: Loss of disc height. Vacuum disc phenomenon. Moderate, diffuse disc bulge. Mild bilateral facet hypertrophy. Moderate narrowing of the central canal. Severe bilateral neural foraminal narrowing with compression of the exiting L5 nerve roots. Soft tissues: No retroperitoneal masses or hematomas. Few scattered colonic diverticula without evidence of diverticulitis. Visualized aorta is normal in caliber. Scattered atherosclerotic calcifications involving the visualized abdominal and pelvic vasculature. IMPRESSION: 1. Multilevel degenerative disc disease. 2. Multilevel facet arthropathy. 3. Severe L4-L5 central canal narrowing. Moderate to severe L3-L4 central canal narrowing. 4. Severe bilateral L4-L5 and L5-S1 neural foraminal narrowing with compression of the exiting bilateral L4 and L5 nerve roots. Severe right L3-L4 neural foraminal narrowing with compression exiting right L3 nerve root. Dictated by: Ofelia Kelly MD, PhD on 11/01/2021 at 15:40 Approved by: Ofelia Kelly MD, PhD on 11/01/2021 at 15:52
== END ==
PROVIDERS: Family Provider Family Medicine; PCP Family Medicine; Referring Provider Orthopaedic Surgery Orthopaedic Surgery of the Spine; Visit Provider Orthopaedic Surgery Orthopaedic Surgery of the Spine
DX: Z01.818 Encounter for other preprocedural examination (principal); Z01.812 Encounter for preprocedural laboratory examination; M48.062 Spinal stenosis, lumbar region with neurogenic claudication; M51.36 Other intervertebral disc degeneration, lumbar region; M51.37 Other intervertebral disc degeneration, lumbosacral region; M47.816 Spondylosis without myelopathy or radiculopathy, lumbar region; M47.817 Spondylosis without myelopathy or radiculopathy, lumbosacral region
CPT/HCPCS: 36415; 72131; 80048; 85025; 93005; 93010

== ENCOUNTER 2022-01-02 09:08 | Day surgery (SDC) | payer OTHER, SELFPAY ==
[2021-10-28 08:35] VITALS: BMI 30.9
[2021-12-29 14:41] VITALS: BMI 34.2
[2022-01-02] VITALS (9 sets, daily range): BP systolic 123–155; BP diastolic 66–89; PULSE 65–97; RESP 16–25; TEMP 35.9–36.6; O2SAT 92–97; BMI 34.2
--- NOTE | 2022-01-02 | DI.RAD.S_ITS ---
PROCEDURE: XR LUMBAR SPINE 2-3V INDICATIONS: L4-5 L5-S1 TLIF TECHNIQUE: 2 intraoperative spot fluoroscopic images of the lower lumbar spine. COMPARISON: [facility], , L-SPINE 2-3 VIEWS, 01/21/2016, 15:05. FINDINGS: Intraoperative spot fluoroscopic images demonstrate posterior spinal fixation hardware at the L4-5 and L5-S1 levels with bilateral pedicle screws and interbody rods as well as disc spacers. IMPRESSION: Posterior fusion hardware is seen at the L4-5 and L5-S1 levels. Dictated by: Roland Rose M.D. on 01/02/2022 at 20:01 Approved by: Roland Rose M.D. on 01/02/2022 at 20:04
[2022-01-02 09:42] LABS: COVID19 -Nasal RAPID Negative (Negative)
[2022-01-02] MEDS: LACTATED RINGERS 1,000 ML 42 ML IV ×2 (10:07→13:23)
[2022-01-02] MEDS: ACETAMINOPHEN 325 MG TABLET 975 MG PO (10:10)
--- NOTE | 2022-01-02 10:22 | PM.PREOP ---
Pre-operative Note COVID-19 COVID-19 status: Negative Result date/Date tested (Pos, Neg/Pending): 01/01/22 Criteria for continued procedure: Expected advancement of disease process, Possibility delay results in more complex future surgery or treatment, Increased loss of function, Continuing or worsening of significant or severe pain, Deterioration of the patient's condition or overall health and Delay expected to result in less-positive ultimate med/surg outcome Interval Note History & Physical reviewed/Exam performed by Physician: Yes Changes to H&P: No
[2022-01-02] MEDS: CEFAZOLIN 2 GM/20 ML SYRINGE IV ×2 (11:05→18:40)
[2022-01-02] MEDS: BUPIVACAINE 0.5% (PF) 30 ML, EPINEPHrine 0.15 MG INJ (11:25)
[2022-01-02] MEDS: BUPIVACAINE LIPOSOME 266 MG/20 ML VIAL INJ (11:30)
--- NOTE | 2022-01-02 11:42 | SUR.OPER ---
Prone on spine table, head in foam head support, padded chest and pelvic supports, gel pad at knees, lower legs supported by pillows; nipples, genitalia and toes free of pressure, arms secured on foam padded arm boards at <90 degrees abduction. Tape over blanket at thigh secured to table.
--- NOTE | 2022-01-02 14:52 | PM.OP.1 ---
Operative Date/Time/Diagnoses Date of procedure: 01/02/22 Time of procedure: 10:45 Pre-op diagnosis: 1. L4-5, L5-S1 spinal stenosis with neurogenic claudication 2. Lumbar scoliosis Post-op diagnosis: same Procedure & Clinicians Procedure: 1. L4-5, L5-S1 Postero-lateral and posterior interbody fusion 2. L4-5, L5-S1 interbody cage placement. 3. L4-5, L5-S1 decompressive laminectomy with bilateral facetecomies 4. L4-5, L5-S1 Posterior segmental instrumentation 5. [place] of bone marrow from iliac crest 6. Utilization of microsurgical technique and operating microscope 7. Utilization of robotic navigation Same procedure as scheduled: Yes Indications: Patient has been having chronic back pain and worsening lumbar radiculopathy. Patient failed multiple conservative management with worsening pain weakness and numbness in her lower extremity. Patient has been having difficulty performing activity of daily living. After discussing risks benefits of treatment options, patient elected proceed with surgery. Surgeon: Tabby Orellana Drain Cleaner: Patrick Watkins Click Yes if Unassisted: No Anesthesia Type: General Operative Notes Closure Type: primary Specimen(s): none sent Prosthetic devices, grafts, tissues, transplants, or devices: Globus CREO MIS screws, Rise cages Applied: catheter Estimated Blood Loss (mL): 100 Blood products transfused: none Procedure in detail: Patient was seen in the preoperative area. Risks and benefits of the surgery was discussed with the patient. Informed consent was obtained from the patient and placed in the chart. Surgical site was marked. Patient was taken to the operative room. General anesthesia was administered. Prophylactic antibiotic was given to the patient less than 30 min before the incision was made. Patient was placed into a prone position on the Shawn table. Patient's back was then prepped and draped in the sterile fashion. Time-out was performed at this time. After patient was prepped and draped, patient's PSIS was palpated and marked bilaterally. Small 1 cm incision was made over the PSIS for placement of the reference probes. Two trocar was placed into the PSIS 1 on each side. The reference probe was attached to the trocar of the reference apparatus. At this time the C-arm imaging was used to confirm AP and lateral of L4-L5, L5-S1 vertebrae and merged the C-arm imaging using the [employer] robotic navigation system with the CT of the lumbar spine. After successful merging was completed and confirmed, skin marker was used to marlo out the skin incision using the [employer] robotic arm. Bilateral incision was made at this time. Pre templated trajectory was used and guided using the [employer] robotic navigation system for bilateral L4, L5, S1 pedicle screw placement. This was done by using the robotic arm to guide the high-speed bur to make a cortical entry point. Next a drill was placed also using the robotic arm and guided using the navigation system drilling partially through bilateral L4, L5 and S1 pedicles. Next L4, L5, S1 pedicle screws it was pre templated and measured was placed onto the power armor reconnaissance vehicle driver and inserted into the pedicles bilaterally. After all 6 screws were placed C-arm imaging was taken of both AP and lateral to confirm the placement. Excellent placement of the screws were confirmed and a matched precisely with the pre planned screw placement using the navigation system. MARs retractor was inserted using [employer] guidence. Globus MARS retractors was placed inside the incision and docked onto the L4 and L5 lamina. Using microsurgical technique and operating microscope, a L4, L5 laminectomy and L4-5, L5-S1 facetectomy was performed using a Kerrison rongeur. Patient was found have severe lateral recess and neural foramen stenosis which was fully decompressed after the laminectomy facetectomy. More than 75% of the facets were removed during the process of decompression rendering L4-5, L5-S1 level grossly unstable and required a fusion procedure at the same time. During the process of decompression, patient was found have significant epidural lipomatosis at both levels. The lipomas were resected using pituitary and Kerrison rongeur to further decompress the epidural space. The disc space at L4-5, L5-S1 was identified, and a total diskectomy was performed at L4-5, L5-S1 level. The endplates were decorticated using a rasp and shaver. The total diskectomy and decortication was performed at L4-5, L5-S1 level in order to to accomplish a L4-5, L5-S1 fusion. The local bone from the laminectomy and facetectomy was saved for local bone grafting. After the total diskectomy and decortication was completed, Trifecta bone graft material was combined with local bone that was harvested earlier. At this time, a separate skin is incision was made over the iliac crest. A Jamshidi needle was inserted into the iliac crest through a separate skin incision. 5 cc of bone marrow aspiration was obtained through the separate skin incision using a Jamshidi needle from the iliac crest. The bone marrow aspiration was combined with local bone and the Trifecta bone grafting material. The bone grafting material was placed into the L4-5, L5-S1 interbody space along with a expandable cage. The cage was expanded to its maximum height using the torque limiting screwdriver. The disc preparation as well as the cage insertion were also performed under navigation guidance. After the cage was placed, AP and lateral C-arm imaging was taken to confirm placement of the cage and excellent position was confirmed. Globus MARS retractor was inserted and docked onto the L4-5, L5-S1 posterolateral gutter on the right side. Using the power drill, posterior-lateral decortication was performed at L4-5, L5-S1 level until bleeding cortical bone was identified. The remaining bone grafting material was placed into the L4-5, L5-S1 posterior lateral gutter he order to accomplish posterolateral fusion at the L4-5, L5-S1 level. At this time the tulips were attached to the L4, L5, S1 pedicle screw shanks. After measuring the length of the rods, they were inserted into the tulips of the pedicle screws and locked in place using locking caps and torque limiting screwdriver bilaterally. Total 6 caps and 2 titanium rods was used in order to complete the posterior instrumentation construct. After all the hardware was placed, and confirmed with AP and lateral C-arm imaging, the wound was then irrigated with sterile normal saline and packed with Ray-Kathleen gauze for 3 min to accomplish hemostasis. After the gauze was removed the deep fascia was closed with #1 Vicryl suture. The subcutaneous layer was closed with 2-0 Vicryl. The skin was closed with skin casie. Patient tolerated the procedure well. There were no complications. Neuro monitoring system was used to monitor patient's neurologic status throughout entire procedure. There was no disturbance of the neural monitoring signals throughout the case. Complications: none Post-operative Condition: stable Disposition: PACU Plan for aftercare: Admit to inpatient hospital
[2022-01-02] MEDS: HYDROMORPHONE 2 MG INJ IV (15:25)
[2022-01-02] MEDS: OXYCODONE IR 5 MG TABLET PO (15:44)
[2022-01-02] MEDS: hydrOXYzine pamoate 25 MG CAPSULE 50 MG PO (15:46)
--- NOTE | 2022-01-02 16:07 | SUR.PHASEI ---
Attempted to call report. Nurse will call back.
--- NOTE | 2022-01-02 18:17 | PC.NURSE ---
Assess- Patient is alert and oriented x3. Dressing to the lower back is cdi. He is tolerating his weir catheter and will be on ivf. Denies any numbness or tingling and is visiting with his . Denies Nausea and has a good appetite.
[2022-01-02] MEDS: CHOLECALCIFEROL (VITAMIN D3) 1,000 UNIT TABLET 1000 UNIT PO (18:34)
[2022-01-02] MEDS: ACETAMINOPHEN 325 MG TABLET 650 MG PO (18:35)
[2022-01-02] MEDS: SODIUM CHLORIDE 0.9% 1,000 ML 100 ML IV (18:35)
[2022-01-02] MEDS: ATORVASTATIN 20 MG TABLET 10 MG PO (20:17)
[2022-01-02] MEDS: LATANOPROST 0.005% OPHTH 2.5 ML 1 DROPS EYE-BOTH (20:17)
[2022-01-02] MEDS: DOCUSATE 100 MG CAPSULE PO (20:18)
[2022-01-02] MEDS: SENNOSIDES 8.6 MG TABLET 17.2 MG PO (20:19)
[2022-01-02] MEDS: DIVALPROEX DR 250 MG TABLET 1000 MG PO (20:19)
[2022-01-02] MEDS: OXYCODONE IR 5 MG TABLET 10 MG PO (20:37)
[2022-01-03] MEDS: CEFAZOLIN 2 GM/20 ML SYRINGE IV (02:48)
[2022-01-03] MEDS: ACETAMINOPHEN 325 MG TABLET 650 MG PO (02:51)
[2022-01-03] MEDS: SODIUM CHLORIDE 0.9% 1,000 ML 100 ML IV (02:51)
[2022-01-03] MEDS: OXYCODONE IR 5 MG TABLET 10 MG PO (04:19)
[2022-01-03 05:36] VITALS: BP 164/83; PULSE 64; RESP 16; TEMP 36.4; O2SAT 98
[2022-01-03 06:26] LABS: Hematocrit 35.1 % (41-53); Hemoglobin 11.5 g/dL (13.5-17.5)
[2022-01-03 07:56] VITALS: BP 145/68; PULSE 60; RESP 17; TEMP 36.3; O2SAT 99
[2022-01-03] MEDS: DIVALPROEX DR 250 MG TABLET 500 MG PO (08:37)
[2022-01-03] MEDS: allopurinoL 300 MG TABLET PO (08:37)
[2022-01-03] MEDS: DOCUSATE 100 MG CAPSULE PO (08:37)
[2022-01-03] MEDS: HYDROMORPHONE 0.5 MG INJ IV (09:15)
--- NOTE | 2022-01-03 10:33 | P.DS_ITS ---
History of Present Illness History of Present Illness Date Patient Seen: 01/03/22 Time Patient Seen: 07:40 Chief complaint: Low back pain s/p TLIF Narrative: Patient is complaining of moderate low back pain this morning. He has not worked with physical therapy yet. Overall he is feeling good, and would like to be discharged home today if he is cleared by PT. Discharge Providers Provider Discharge Date: 01/03/22 Primary care physician: Hebert Gutierrez MD Consults: 11/24/21 12:20 Consult to Anesthesiology Routine Comment: Consulting Provider: Anesthesiologist Reason for consultation: Surgeon office requesting re: Abnormal pre-op labs/ECG 01/02/22 16:22 Consult to Occupational Therapy Evaluate & Treat Comment: Physician Instructions: Evaluate and treat Consult to Physical Therapy Evaluate & Treat Comment: Physician Instructions: Evaluate and Treat Discharge provider: Tasneem Osullivan PA-C Summary Hospital Course Discharge Diagnosis: 1. L4-5, L5-S1 spinal stenosis with neurogenic claudication 2. Lumbar scoliosis Hospital Course: Operative Date/Time/Diagnoses Date of procedure: 01/02/22 Time of procedure: 10:45 Procedure & Clinicians Procedure: 1. L4-5, L5-S1 Postero-lateral and posterior interbody fusion 2. L4-5, L5-S1 interbody cage placement. 3. L4-5, L5-S1 decompressive laminectomy with bilateral facetecomies 4. L4-5, L5-S1 Posterior segmental instrumentation 5. [place] of bone marrow from iliac crest 6. Utilization of microsurgical technique and operating microscope 7. Utilization of robotic navigation Same procedure as scheduled: Yes Indications: Patient has been having chronic back pain and worsening lumbar radiculopathy. Patient failed multiple conservative management with worsening pain weakness and numbness in her lower extremity.? Patient has been having difficulty performing activity of daily living.? After discussing risks benefits of treatment options, patient elected proceed with surgery. Surgeon: Tabby Orellana Dial Equipment Engineer: Patrick Watkins Click Yes if Unassisted: No Anesthesia Type: General Operative Notes Closure Type: primary Specimen(s): none sent Prosthetic devices, grafts, tissues, transplants, or devices: Globus CREO MIS screws, Rise cages Applied: catheter Estimated Blood Loss (mL): 100 Blood products transfused: none Status at Discharge Cognitive/behavioral status at discharge: at baseline, oriented Functional status at discharge: uses cane/walker Overall status at discharge: patient is progressing back to baseline Exam Vital Signs (past 8 hours): - 01/03/22 05:36 01/03/22 07:56 Temperature 97.5 F L 97.4 F L Pulse Rate 64 60 Respiratory Rate 16 17 Blood Pressure 164/83 H 145/68 H Pulse Oximetry 98 99 Oxygen Flow Rate 0 0 Oxygen Delivery Method Nasal Cannula Oxygen Flow Rate 0 Narrative Exam Narrative: Pleasant 66-year-old male, resting comfortably in his chair, no acute distress. His is at bedside. Dressing demonstrates serosanguineous drainage on over 50% of the dressing. No surrounding erythema or induration. Bilateral lower extremity: Motor functions are grossly intact, sensations are grossly intact to light touch, calves are soft and nontender to palpation. Objective Labs Result Diagrams: 01/03/22 06:00 Labs: Laboratory Results - last 24 hr 01/03/22 06:00 Hgb 11.5 L Hct 35.1 L PFSH Medical History Bilateral leg cramps Bipolar 1 disorder COVID-19 virus infection (11/03/21) Diverticulosis Glaucoma Gout Hearing impaired HTN (hypertension) Hyperlipidemia Skin abnormality Surgical History History of cholecystectomy Hx of appendectomy Hx of arthroscopy of left knee Hx of bilateral cataract extraction Hx of eye surgery Hx of repair of left rotator cuff Hx of tonsillectomy Family History Mother Lymphoma Leukemia Other Diabetes mellitus Heart disease Social History household members: spouse and family Smoking Status: Former smoker alcohol intake: former Discharge Assessment & Plan Assessment and Plan Assessment: Stable status post L4-5, L5-S1 TLIF Plan of Treatment: Mobilize with PT/OT. Limit bending, lifting, twisting x6 weeks -continue with multimodal pain management -DC urinary catheter -dressing change today. -DC home once cleared by PT/OT today, possibly tomorrow if he is not safe to go today Discharge Plan Discharge Plan Patient Disposition: Home Discharge orders & Medications Discharge Orders: Discharge (Order); Ordered 01/03/22 Ordered By: Tasneem Osullivan Prescriptions: New acetaminophen 500 mg capsule 500 mg PO Q4H MDD Max 3000 mg per day PRN (Reason: Pain, Mild (1-3)) Qty: 90 0RF docusate sodium 100 mg Capsule 100 mg PO BID PRN (Reason: Constipation from narcotic pain meds) Qty: 20 0RF oxycodone 5 mg Tablet See Rx Instructions .ROUTE .COMPLEX PRN (Reason: Pain, Severe (7-10)) Qty: 42 0RF Rx Instructions: Take 1-2 tablets by mouth every 4 hours as needed for moderate to severe post op pain Continued latanoprost 0.005 % Drops 1 drp ophthalmic (eye) QPM atorvastatin 10 mg Tablet 10 mg PO QPM divalproex [Depakote] 500 mg Tablet,Delayed Release (Dr/Ec) 1 tab PO QAM divalproex [Depakote] 500 mg Tablet,Delayed Release (Dr/Ec) 2 tab PO QPM aspirin 81 mg Tablet,Delayed Release (Dr/Ec) 81 mg PO DAILY allopurinol 300 mg Tablet 300 mg PO DAILY cholecalciferol (vitamin D3) [Vitamin D3] 1,000 unit Capsule 1,000 unit PO QPM Follow up/Referrals: Hebert Gutierrez MD [Primary Care Provider] - Tabby Orellana MD [Physician] - (10-14 days for postoperative visit) Diet/Activity/Treatments Diet: Diet as Tolerated Other treatments: Medications: -OTC Tylenol 500 mg 1 tablet every 4 hours as needed for pain/fever. Max 6 tablets per day. -Oxycodone 5 mg take 1-2 tablets every 4 hours as needed for moderate-severe pain (narcotic pain medication). -As needed medications: -Ducolax and /or MiraLax as needed for constipation from narcotic pain medications. -Pepcid AC as needed for stomach upset. Dressing/Wound care: -Keep dressing in place until postoperative follow-up office visit. -Okay to shower. Keep wound out of direct water stream. Can use PressNSeal pl astic wrap to protect from shower stream. No soaking or submerging until all the scabs fall off (approximately 6 weeks). -Please call the office if dressing becomes wet, soiled, or saturated. Activities: -Limit bending, lifting, twisting x6 weeks. No deep bending (more than 90 degrees) or twisting at the waist. No lifting > 20 pounds. -Walk frequently. -Weight-bearing as tolerated. Use front wheeled walker, and progress to cane when safe. -Continue with home exercises as directed by your physical therapist. -Ice your incision as needed for pain/inflammation/swelling. Protect your skin with a folded pillowcase. -Incentive Spirometer (breathing device from hospital): 5-10xs every hour while awake for the first 1-2 weeks. Follow-up: -Follow-up with your surgeon or PA in the office in 10-14 days after surgery. -Follow-up with your surgeon 6 weeks postoperatively. Call the office if you have chest pain, shortness of breath, significant swelling that will not resolve with elevating, fever over 101?, significantly worsening pain, or are concerned you might need to go to the Emergency Room. Desirae [facility]: [phone] Skin/Wound/Dressing Care Report to your healthcare provider any signs of infection, such as:: chills, fever, night sweats, unusual drainage and unusual redness Visit Report/Discharge Packet Instructions: DI for Transforaminal Lumbar Interbody Fusion Stand Alone Forms: Surgery Discharge Discharge Data Primary Care Provider: Hebert Gutierrez Attending Provider: Tabby Orellana
--- NOTE | 2022-01-03 11:36 | OT.IP.EVAL ---
Current Diagnoses Spondylolisthesis, lumbar region (01/02/22) Spinal stenosis, lumbar region with neurogenic claudication (01/02/22) Surgery Performed Operation Date: 01/02/22 10:45 Actual Procedures p L4-5, L5-S1 TLIF with posterior instrumentation, L3-4 hemilaminectomy -Robot - Tabby Orellana MD Past Medical History (Last Reviewed 01/03/22 @ 10:39 by Tasneem Osullivan PA-C) Bilateral leg cramps Bipolar 1 disorder COVID-19 virus infection (11/03/21) Diverticulosis Glaucoma Gout Hearing impaired HTN (hypertension) Hyperlipidemia Skin abnormality Surgical History (Last Reviewed 01/03/22 @ 10:39 by Tasneem Osullivan PA-C) History of cholecystectomy Hx of appendectomy Hx of arthroscopy of left knee Hx of bilateral cataract extraction Hx of eye surgery Hx of repair of left rotator cuff Hx of tonsillectomy Occupational Therapy Inpatient Evaluation/Re-Eval M1 PT/OT-IP Prior Functional Status Start: 01/03/22 12:05 Freq: Status: Active Protocol: Document 01/03/22 12:06 (Rec: 01/03/22 12:17 [id number]) Medical Review Prior Functional Status Medical History Reviewed Yes Mobility and Gait L foot drop Independent with ambulation Activities of Daily Living and IADL's Independent Prior Functional Level (Other details) Runs own business of [employer] Social History Household Members spouse,family Living Arrangements House Number of Floors (Floors) One Floor Number of Stairs To Enter/Railing? 3 with railing Home Environment Standard Height Toilet Home Equipment Front Wheel Walker,Four Wheel Walker Employment Status Self-Employed Additional Social History Comment lives with spouse and son/ family (upstairs) M2 OT-IP Current Condition Start: 01/03/22 12:33 Freq: Status: Active Protocol: Document 01/03/22 11:36 [facility] (Rec: 01/03/22 12:54 [facility] [id number]) Occupational Therapy Current Condition Current Condition Evaluation Date 01/03/22 Treatment Diagnosis S/p L4-5, L5-S1 TLIF Diagnosis Onset Date 01/02/22 Post Operative Precautions Lumbar Precautions Log Roll,No Twisting,Limit Bending,Lifting Restriction of 10 lbs,Gait Belt above Incisional Area M3 OT- IP Subjective and Pain Start: 01/03/22 12:33 Freq: Status: Active Protocol: Document 01/03/22 11:36 [facility] (Rec: 01/03/22 12:54 [facility] [id number]) OT- Subjective Occupational Therapy Visit Type Type Initial Evaluation Visit Start Time 11:36 Visit Stop Time 12:02 Total Visit Minutes 26 Occupational Therapy Visit Comments Patient Comments Pt agreed to work with OT and pt's in the room. Patient/Caregiver Goals TO go home. OT Pain Assessment Pain When Pain Assessed At Rest Pain Present Pain Present Denied Pain M4 OT- IP ADL's Start: 01/03/22 12:33 Freq: Status: Active Protocol: Document 01/03/22 11:36 [facility] (Rec: 01/03/22 12:54 [facility] [id number]) OT [id number] Comments OT Self-Feeding Comments Not at meal time. OT ADL-Grooming General Evaluation Grooming Ability Standby Assistance Areas Needing Assistance Retrieving/Set-up of Grooming Items OT ADL-Oral Care General Eval Oral Care Ability Standby Assistance Areas of Assistance Retrieving/Set-Up of Items Comments Oral Care Comments Educated best to spit into a cup or hinge at his hips to best follow his back precautions. OT ADL-Dressing General Eval Lower Body Dressing Ability Maximum Assistance Comments OT Dressing Comments Pt states his and family will just assist for his ADL needs. OT ADL-Toileting General Evaluation Toileting Ability Standby Assistance Comments OT Toileting Comments Pt educated to either sit on the toilet/BSC or use the FWW over the toilet to stand and urinate. OT ADL-Bathing Comments OT Bathing Comments Pt not wanting to shower here. Pt would benefit from tub bench versus shower chair and grab bar/transfer pole and HHSP. Pt's states will most likely sponge off initially. M5 OT- IP IADL's Start: 01/03/22 12:33 Freq: Status: Active Protocol: Document 01/03/22 11:36 [facility] (Rec: 01/03/22 12:54 [facility] [id number]) OT-Instrumental Activities of Daily Living Home Safety Awareness Awareness of Need for Assistance at Home Decreased Awareness Home Safety Comments Pt seem to underestimate the needs for assist as initially states not wanting to use the FWW to get up. M6 OT- IP Functional Cognition Start: 01/03/22 12:33 Freq: Status: Active Protocol: Document 01/03/22 11:36 [facility] (Rec: 01/03/22 12:54 [facility] [id number]) Cognitive Factors Limiting Selfcare Function Cognitive Ability Level of Alertness Alert,Drowsy Patient Orientation Name,Place,Situation Attention Span Ability Capable of Focused Attention, Capable of Sustained Attention Ability to Follow Commands Able to Follow One Step Commands with Increased Time, Able to Follow One Step Commands with Repetition Safety Awareness Decreased Recall of Precautions,Decreased Ability to Apply Precautions, Underestimates Need for Assistance Cognitive Comments Cognitive Assessment Comments VC to recall and follow his back precautions. VC for safety awareness to keep the FWW closer to him and to be sure to push from the surfaces coming up from versus grabbing the FWW to stand. OT- Vision and Hearing OT- Hearing Assessment OT- Hearing Assessment WFL M7 OT- IP Mobility and Balance Start: 01/03/22 12:33 Freq: Status: Active Protocol: Document 01/03/22 11:36 [facility] (Rec: 01/03/22 12:54 [facility] [id number]) OT-Transfer Assessment Sit to and From Stand Sit to and from Stand Moderate Assistance Transfers Transfer Ability Contact Guard Assistance, Minimal Assistance Technique Transfer Destination Bed,Chair Transfer Technique Stand Step Pivot Devices Transfer Assistive Devices Gait Belt,Front Wheeled Walker Comments Mobility Comments MODA to help come to stand to FWW and CGA/ROSALVA with FWW , pt tends to keep the FWW too far in front of him and needing cues to keep it closer. OT- Balance Assessment Sitting Balance and Reactions Static Sitting Balance Ability Good Dynamic Sitting Balance Ability Good Standing Balance and Reactions Static Standing Balance Ability Fair Dynamic Standing Balance Ability Poor M8 OT- IP Objective Assessments Start: 01/03/22 12:33 Freq: Status: Active Protocol: Document 01/03/22 11:36 [facility] (Rec: 01/03/22 12:54 [facility] [id number]) OT-Muscle Tone Assessment Muscle Tone WNL Yes M9 OT- IP Assessment and Plan Start: 01/03/22 12:33 Freq: Status: Active Protocol: Document 01/03/22 11:36 [facility] (Rec: 01/03/22 12:54 [facility] [id number]) OT Summary Assessment and Plan Potential Rehabilitation Potential Good Analytic Complexity at Evaluation Low Summary OT Impairments Pain,Strength,Balance, Functional Mobility,Grooming, Dressing,Toileting,Bathing, Toilet Transfers,Shower Transfers,Activity Tolerance Progress Towards Goals Progressing Toward Goals Assessment Summary Pt low complexity and main barriers as decreased safety awareness and now needing one person assist for ADl's and mobility needs. Pt's present for caregiver training of gait belt management, and how to assist for ADl needs and transfers. Pt looking to go home with assist when medically stable. Goals Grooming Goal Independent Dressing Goal Minimal Assistance Toileting Goal Standby Assistance Bathing Goal Minimal Assistance Toilet Transfer Goal Independent Shower Transfer Goal Minimal Assistance Patient/Caregiver Education Goal Demonstrate Post-Op Precautions,Caregiver Independent Assisting Patient Days to Meet Goals 3 Frequency of Treatment Frequency Of Treatment Once a Day Treatment Plan OT Treatment Plan ADL Training,Functional Cognition Training,Functional Mobility,Patient/Family Education,Discharge Planning Other Treatment Recommendations and Next shower if still here Treatment Focus Discharge Recommendations OT Discharge Recommendations Home with 08/01 Assist Available Home Equipment Needs BSC,tub bench, FWW, HHPS Transportation Needs at Discharge Private Vehicle
[2022-01-03 11:48] VITALS: BP 143/75; PULSE 59; RESP 18; TEMP 36.3; O2SAT 100
--- NOTE | 2022-01-03 12:17 | PT.IIE ---
Current Diagnoses Spondylolisthesis, lumbar region (01/02/22) Spinal stenosis, lumbar region with neurogenic claudication (01/02/22) Surgery Performed Operation Date: 01/02/22 10:45 Actual Procedures p L4-5, L5-S1 TLIF with posterior instrumentation, L3-4 hemilaminectomy -Robot - Tabby Orellana MD Surgical History (Last Reviewed 01/03/22 @ 10:39 by Tasneem Osullivan PA-C) History of cholecystectomy Hx of appendectomy Hx of arthroscopy of left knee Hx of bilateral cataract extraction Hx of eye surgery Hx of repair of left rotator cuff Hx of tonsillectomy Medical History (Last Reviewed 01/03/22 @ 10:39 by Tasneem Osullivan PA-C) Bilateral leg cramps Bipolar 1 disorder COVID-19 virus infection (11/03/21) Diverticulosis Glaucoma Gout Hearing impaired HTN (hypertension) Hyperlipidemia Skin abnormality Physical Therapy Inpatient Evaluation/Re-Eval M1 PT/OT-IP Prior Functional Status Start: 01/03/22 12:05 Freq: Status: Active Protocol: Document 01/03/22 12:06 [facility] (Rec: 01/03/22 12:17 [facility] [id number]) Medical Review Prior Functional Status Medical History Reviewed Yes Mobility and Gait L foot drop Independent with ambulation Activities of Daily Living and IADL's Independent Prior Functional Level (Other details) 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 3 with railing Home Environment Standard Height Toilet Home Equipment Front Wheel Walker,Four Wheel Walker Employment Status Self-Employed Additional Social History Comment lives with spouse and son/ family (upstairs) M2 PT-IP Current Condition Start: 01/03/22 12:05 Freq: Status: Active Protocol: Document 01/03/22 12:06 [facility] (Rec: 01/03/22 12:17 [facility] [id number]) Physical Therapy Current Condition Current Condition Evaluation Date 01/03/22 Treatment Diagnosis altered gait pattern Onset Date 01/02/22 M3 PT-IP Subjective Start: 01/03/22 12:05 Freq: Status: Active Protocol: Document 01/03/22 12:06 [facility] (Rec: 01/03/22 12:17 [facility] [id number]) Subjective Physical Therapy Visit Type Type Initial Evaluation Visit Start Time 09:52 Visit Stop Time 10:30 Total Visit Minutes 35 Physical Therapy Visit Comments Patient Comments Pt concerned about bed mobility. Patient Goals To return home today Therapy Pain Assessment Pain When Pain Assessed At Rest Pain Present Pain Present Denied Pain Location Back Intensity 0 Scale Used Numeric (0 - 10) M4 PT-IP Mobility and Gait Start: 01/03/22 12:05 Freq: Status: Active Protocol: Document 01/03/22 12:06 [facility] (Rec: 01/03/22 12:17 [id number]) PT-Bed Mobility Assessment Rolling Type of Rolling Log Rolling,Roll to Left Level of Assist Standby Assistance Supine to Sit Supine to Sit Contact Guard Assistance Sit to Supine Sit to Supine Contact Guard Assistance Scooting Scooting to Edge of Bed Independent PT-Transfer Assessment Sit to and From Stand Sit to and from Stand Standby Assistance Equipment Transfer Assistive Device Front Wheeled Walker Transfers Transfer Destination Bed,Chair Transfer Technique Stand Pivot Transfer Ability Level of Assist Standby Assistance Comments Mobility Comments Educated Pt and spouse on log roll. Pt modifies STS transfer due to L knee pain, less WB through LLE vs RLE Gait Assessment Gait Gait Assistance Required: Standby Assistance Distance (Feet) 100 Assistive Devices Assistive Device Gait Belt,Front Wheeled Walker Gait Deviations General Gait Pattern Antalgic,Decreased Stride Length,Decreased Feet Clearance,Flexed Trunk,Wide Based Gait Factors Limiting Gait Function Factors Limiting Gait Function Decreased Strength Comments Gait Comments L foot drop (pre-exisiting), forward flexed trunk, LLE externally rotated slightly. Stair Climbing Assessment Evaluation Level of Assist On Stairs Contact Guard Assistance Devices Stair Climbing Assistive Devices Left Railing,Right Railing Technique/Endurance Stair Climbing Direction Ascend and Descend Stair Climbing Technique Step to Step Number of Steps Climbed 3 Query Text: Comments Stair Climbing Comments Uses technique with R ascent and L descent due to L knee pain PT-Balance Assessment Sitting Balance and Reactions Static Sitting Balance Ability Good Dynamic Sitting Balance Ability Good Standing Balance and Reactions Static Standing Balance Ability Good Dynamic Standing Balance Ability Fair Device Used FWW M5 PT-IP Objective Assessments Start: 01/03/22 12:05 Freq: Status: Active Protocol: Document 01/03/22 12:06 [facility] (Rec: 01/03/22 12:17 [id number]) Orientation Orientation/Cognition Level of Alertness Alert Orientation Name,Age,Birthday,Month,Date, Year,Day of Week,Place, Situation Safety Awareness Understands Safety Issues Gross Range of Motion Upper Extremity ROM Assessment Within Functional Limits Lower Extremity ROM Assessment Within Functional Limits Strength Upper Extremity Strength Assessment Within Functional Limits Lower Extremity Strength Assessment Left Impaired Ankle 2/5 ankle DF/EV Comments Strength Comments Hx of L foot drop ~7 years per Pt report. Sensation Assessment Sensation Gross Sensation WNL Muscle Tone Muscle Tone WNL Yes M6 PT-IP Treatment Start: 01/03/22 12:05 Freq: Status: Active Protocol: Document 01/03/22 12:06 [facility] (Rec: 01/03/22 12:17 [id number]) Physical Therapy Treatment Education Education Provided Precautions,Post-Op Packet, Safety Brace Education Patient,Caregiver M7 PT-IP Assessment and Plan Start: 01/03/22 12:05 Freq: Status: Active Protocol: Document 01/03/22 12:06 [facility] (Rec: 01/03/22 12:17 [id number]) PT Summary Assessment and Plan Potential Rehabilitation Potential Excellent Status of Condition at Evaluation Stable Summary Impairments Balance,Bed Mobility,Transfers ,Gait,Activity Tolerance Progress Towards Goals Progressing Toward Goals Assessment Summary Pt admitted s/p L4-S1 fusion and laminectomy. Pt has a hx of multiple L knee arthoscopy procedures. 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 For now his son will be managing the business. He has a FWW and 4WW at home though has not needed to use them prior. His concern is bed mobility stating it took two nurses this morning. Pt able to demonstrate grossly CGA to SBA for mobility today. His bed mobility was assessed with bed flat. Spouse and Pt educated on log roll and where family can safely assist on sit-> supine vs supine->sit; however , Pt was able to complete transfer with therapist and CGA today. He ambulates slowly and with an anatalgic gait pattern due to L foot drop. Per Pt he has always been forward flexed with regards to posture. Pt and spouse's questions regarding mobility, home discharge and PT recs were answered. We reviewed spinal precautions. Recommend d/c home when medically stable. Goals Bed Mobility Goal Independent Transfer Goal Independent Gait Goal Independent Gait Distance 200 Days to Meet Goals 3 Frequency of Treatment Frequency Of Treatment Twice a Day Treatment Plan Physical Therapy Treatment Plan Bed Mobility Training,Transfer Training,Gait Training, Therapeutic Exercise,Post Op Education,Discharge Planning, Neuromuscular Re-ed Precautions Lumbar Precautions Log Roll,No Twisting,Limit Bending,Lifting Restriction of 10 lbs,Gait Belt above Incisional Area Recommendations To Nursing Amount of Assist Needed Standby Assistance,1 Person Assist Discharge Recommendations PT Discharge Recommendations Home with Assistance Transportation Needs at Discharge Private Vehicle
--- NOTE | 2022-01-03 12:48 | CM.DANOTE ---
DCP: Case received, EMR reviewed and met with patient. Spouse, Cyndie, was at bedside. Introduced self and role. Was able to obtain information regarding patient's baseline activity status prior to surgery. DCP assessment completed with information available. Patient is a 66 year old male who admitted yesterday morning to the care of the orthopedic team. PCP: Dr. Gutierrez. Payer: [employer]. Patient came to the hospital for a surgical procedure. He had a surgical procedure. L4-5, L5-S1 postero-lateral and posterior interbody fusion. Patient has history of spinal stenosis. Met with patient and spouse in the room. Patient was sitting up in his chair, alert and oriented. Confirmed that he resides in [facility]. At his baseline, he is independent, and drives. He does not use any DME supplies at his baseline. P: Patient is to be discharging home today after working with P.T. Cindy Ribera RN/Plastic Worker Discharge Planning/Care Management Advanced directive, confirm from FAMILY Start: 01/02/22 18:09 Freq: Q24H Status: Active Protocol: Document 01/02/22 18:13 CLL (Rec: 01/02/22 18:17 CLL [id number]) Advance Directive, confirm on record Time 18:14 Person contacted patient Copy received No CM Discharge Assessment Start: 01/03/22 12:43 Freq: Status: Active Protocol: Document 01/03/22 12:44 VM (Rec: 01/03/22 12:48 [id number]) Discharge Planning Assessment Assigned [employer] Cindy Ribera RN/Plastic Worker Advance Directives? No Advance Directives on File No History Provided By Patient,Medical Record Prior Living Arrangements House Household Members spouse,family Type of transporation used prior to Drives own vehicle admit Independent with ADL's Yes Is patient alert and oriented? Yes Caregiver for Another No Barriers to Discharge No Discharge Plan Home Transportation Arrangement Family to provide transport Referrals Initiated None needed Whiteboard Updated in Patient Room with Yes name and ext. # of [employer] Review Status In Process Next Review Type Continued Stay Review Pre-Anesthesia Assessment Start: 11/24/21 09:27 Freq: Status: Active Protocol: Document 12/29/21 14:41 CAB (Rec: 11/24/21 10:40 CAB [id number]) Pre-Anesthesia Assessment Patient Information Reviewed Via Phone Assessment Assessment Completed With Patient Diagnostic Results BMP/CMP,CBC,EKG Comment Labs/ECG @ [facility] 11/01/21, COVID screen @ 12/30/21 Primary Care Provider Hebert Gutierrez Seen Specialist in Last 12 Months Yes Specialist Seen Orthopedist Primary Language [place] Preferred Language [place] [employer] Plantation Worker Required No Height 5 ft 11 in Weight 245 lb Body Mass Index (BMI) 34.2 Hearing Ability Hard of Hearing,Use of Hearing Aid Visual Assist Glasses Dentition Type Full- Upper & Lower Barriers to Learning None Hx Anesthesia Reactions No Hx Family Anesthesia Reaction No Hx Malignant Hyperthermia No Hx Blood Transfusions No Anesthesia Review Requested Yes: Surgeon's office requested re: Abnormal pre-op labs/ECG. Splitter Tender No alcohol intake former Smoking Status Former smoker how long ago did patient quit smoking >30yrs Substance Use Type does not use Pain Present Pain Reported Musculoskeletal Symptoms Abnormal Gait,Back Pain, Difficulty Walking,Joint Pain, Radiating Pain into Limb History of Falling (Recent or History of Yes ) Patient is completely paralyzed or No completely immobile Mental Status Oriented to own ability Is patient on oxygen? No Does patient have OREILLY/SOB No Hx Sleep Apnea No CPAP/BIPAP use not prescribed Currently Taking a Beta Rangel No Can You Climb a Flight of Stairs Without Yes SOB Hx Chest Pain No Hx SOB No Hx Syncope or Dizziness No Anti-Coagulant Therapy No Has a Human Resources Generalist No Cardiac Testing No Hx Pacemaker/ICD No Pacemaker Rep Required? No Diet Type At Home Regular dysphagia No Bladder Pattern Frequency Urinary Catheter Present No Hx Urinary Self Catheterization No Diabetes No Presence of External or Internal Medical No Devices Have you had any close contact with Yes: Covid infection 11/03/21 someone diagnosed with COVID-19? Marital Status Lives With spouse,family Patient Discharge Plan Description Return Home Comment Pt advised 2 day length of stay per surgeon Feels Safe in Current Environment Yes Been Physically Hurt or Threatened By a No Person in Current Environment Do you have thoughts of harming yourself None or others? Are you currently considering suicide? No Do you have a plan to hurt yourself or No Plan others? Do You Have Any Spiritual Beliefs That No May Affect Your HC Choices? Do You Have Any Cultural Practices That No May Affect Your HC Choices? Who Can We Speak to About Patient's Care Family, friends Identifying Code for Release of Patient Declines to issue Information Health Care Proxy/Next of Kin Cyndie () Health Care Proxy Emergency Contact Name Nahomi Mota (Brother) Emergency Contact Advance Directives? No Advance Directives on File No Power of Hand Drawer In Yes Power of Hand Drawer In Name Cyndie () Power of Hand Drawer In PAC Instructions Durable medical equipment, Medications to take/avoid, Nasal antibiotic,No ETOH/ petroleum product on skin DOS, NPO,Post-op transportation,Pre -surgical wash,Sturdy shoes/ comfortable clothes,Do not bring valuables and remove jewelry
--- NOTE | 2022-01-03 13:10 | PC.NURSE ---
Pt is AxOx4, needs minimum assistance and cooperative. VSS, pt c/o back pain and PRN IV Dilaudid given right before PT. It was effective. Dressing on back changed x2 and teaching done to pt's spouse. Removed weir and IV. Pt voided in urinal. Pt was given d/c instruction including s/s infection, and other abnormal symptoms. Pt verbalized understanding. No other changes. Pt is ready d/c.
--- NOTE | 2022-02-14 16:38 | PM.HP.1 ---
History of Present Illness History of Present Illness Date Patient Seen: 01/02/22 Time Patient Seen: 07:40 Date of Onset of Symptoms: 01/26/21 Chief complaint: Low back pain s/p TLIF Narrative: Mr. Mota is a 66 yo M with chronic back pain and leg pain due to spinal stenosis here for scheduled lumbar surgery. Patient failed conservative care with persisting pain. Patient History Medical History Bilateral leg cramps Bipolar 1 disorder COVID-19 virus infection (11/03/21) Diverticulosis Glaucoma Gout Hearing impaired HTN (hypertension) Hyperlipidemia Skin abnormality Surgical History History of cholecystectomy Hx of appendectomy Hx of arthroscopy of left knee Hx of bilateral cataract extraction Hx of eye surgery Hx of repair of left rotator cuff Hx of tonsillectomy Family & Social History Family History Mother Lymphoma Leukemia Other Diabetes mellitus Heart disease Social History: household members spouse,family Prior Living Arrangements House Safety & Behavioral: Feels Safe in Current Yes Environment Been Physically Hurt or No Threatened By a Person Suicidal Ideation Description None Suicide Plan Description No Plan Tobacco & Substance use: Smoking Status Former smoker alcohol intake former Substance Use Type does not use Meds Home Medications and Allergies Home Medications Medication Instructions Recorded Confirmed Type allopurinol 300 mg tablet 300 mg PO DAILY 02/26/18 01/02/22 History aspirin 81 mg tablet,delayed 81 mg PO DAILY 02/26/18 01/02/22 History release atorvastatin 10 mg tablet 10 mg PO QPM 02/26/18 01/02/22 History cholecalciferol (vitamin D3) 25 1,000 unit PO QPM 02/26/18 01/02/22 History mcg (1,000 unit) capsule (Vitamin D3) divalproex 500 mg tablet,delayed 1 tab PO QAM 02/26/18 01/02/22 History release (Depakote) divalproex 500 mg tablet,delayed 2 tab PO QPM 02/26/18 01/02/22 History release (Depakote) latanoprost 0.005 % eye drops 1 drp ophthalmic (eye) QPM 02/26/18 01/02/22 History acetaminophen 500 mg capsule 500 mg PO Q4H PRN Pain, Mild (1-3) 01/03/22 Rx #90 caps docusate sodium 100 mg capsule 100 mg PO BID PRN Constipation 01/03/22 Rx from narcotic pain meds #20 caps oxycodone 5 mg tablet See Rx Instructions .Route 01/03/22 Rx .COMPLEX PRN Pain, Severe (7-10) #42 tabs Allergies Allergy/AdvReac Type Severity Reaction Status Date / Time bee venom protein (honey bee) Allergy Intermediate swelling Verified 01/02/22 09:30 shellfish derived AdvReac Intermediate gout Verified 01/02/22 09:30 Review of Systems Review of Systems ROS: Yes All systems reviewed with the patient and are negative except as otherwise documented Exam Vital Signs (past 8 hours): Oxygen Delivery Method Room Air Oxygen Flow Rate 0 Const General: cooperative and comfortable Back/Spine/Pelvis Other: Limited ROM of lumbar due to pain Neuro Other: bilateral L4, L5 decreased sensibility, motor strength 4/5 in bilateral EHL, TA at gastroc at 4/5. + straight leg raise to LLE. Objective Labs Result Diagrams: 01/03/22 06:00 Assessment & Plan Assessment & Plan narrative: Mr. Mota is a 66 yo M with symptoms of neurogenic claudication and progressive back pain and leg weakness and pain. He has severe spinal stenosis, lumbar spondylolisthesis failing conservative care including recent DANIELLE L-spine with only short term relief. He has difficulty performing activity of daily living. He will benefit from decompression with total facetecmies and laminectomies at L4-5, L5-S1 level, which will render his L4-5, L5-S1 further unstable and require a fusion procedure at the same time. Risks for surgery include but not limited to bleeding, infection, nerve/dura/bladder/bowel/blood vessel injury, need for additional procedure, even . Pt understands and would like to proceed with surgery. I scheduled him for L4-5, L5-S1 TLIF, L3-4 hemilaminectomy. Time Spent With Patient Critical Care time: I spent a total of [] minutes of critical care time on this patient's care today; this time is exclusive of procedural time.
== END 2022-01-03 13:14 | disposition home or self-care (01) ==
LOC: OR 09:09 → AC 09:09
PROVIDERS: Family Provider Family Medicine; PCP Family Medicine; Referring Provider Orthopaedic Surgery Orthopaedic Surgery of the Spine; Visit Provider Orthopaedic Surgery Orthopaedic Surgery of the Spine
PROC: (CPT 22633; principal; 2022-01-02 10:45)
DX: M48.062 Spinal stenosis, lumbar region with neurogenic claudication (principal); M43.17 Spondylolisthesis, lumbosacral region; M54.16 Radiculopathy, lumbar region; M41.26 Other idiopathic scoliosis, lumbar region; I12.9 Hypertensive chronic kidney disease with stage 1 through stage 4 chronic kidney disease, or unspecified chronic kidney disease; N18.9 Chronic kidney disease, unspecified; E78.5 Hyperlipidemia, unspecified; F31.9 Bipolar disorder, unspecified; Z20.822 Contact with and (suspected) exposure to COVID-19; Z87.891 Personal history of nicotine dependence; M48.07 Spinal stenosis, lumbosacral region
CPT/HCPCS: 22633; 22634; 22853 ×2; 22842; 20939; 20936; 63052; 63053; 00670; 36415; 72100; 76000; 82962; 85014; 85018; 87635; 97161; 97165; 97530; 97535; C9803; C1831; C9290; J0171; J0690; J1100; J1170; J2250; J2405; J2704; J3010

== ENCOUNTER → 2024-02-27 14:26 | Outpatient (CLI) | payer OTHER, SELFPAY ==
[2022-01-02 17:58] VITALS: BMI 34.2
--- NOTE | 2024-02-27 14:27 | DI.US.S_ITS ---
PROCEDURE: US RENAL COMPLETE INDICATIONS: CKD TECHNIQUE: Real-time scanning was performed of the kidneys and bladder, with image documentation. COMPARISON: None. FINDINGS: Technically challenging exam secondary to lack of good acoustic window. Kidneys: Kidneys are normal in size. Right kidney measures 9.1 cm long; left kidney measures 11.1 cm long. Right renal cortical thickness is 1.9 cm; left renal cortical thickness is 1.6 cm. There is an exophytic cyst on the right kidney measuring 1.2 x 1.1 x 1.4 cm. There are two left renal cysts, one with a fine septation. One cyst measures up to 3.1 cm. The other cyst measures 3.6 cm. No hydronephrosis or nephrolithiasis. No suspicious solid mass lesions. Bladder: Pre-void bladder volume is 499 mL. Post-void residual is 190 mL. Pre-void images demonstrate no intraluminal masses or stones. On pre-void images, bilateral ureteral jets are noted with color Doppler interrogation. (Of note, ureteral jets may not be detectable in up to 25% of cases due to insufficient differences in specific gravity between ureteral and bladder urine). Miscellaneous: No free pelvic fluid. IMPRESSION: Suboptimal exam secondary to lack of good acoustic window. No sonographic evidence of obstructive uropathy or intrarenal calcification. Bilateral renal cysts. No solid mass. Large postvoid residual in the urinary bladder. Dictated by: Lucy Dominique M.D. on 02/28/2024 at 9:15 Approved by: Lucy Dominique M.D. on 02/28/2024 at 9:19
== END ==
LOC: US 14:26
PROVIDERS: Family Provider Family Medicine; PCP Family Medicine; Referring Provider Internal Medicine Nephrology; Visit Provider Internal Medicine Nephrology
DX: N18.4 Chronic kidney disease, stage 4 (severe) (principal); F31.70 Bipolar disorder, currently in remission, most recent episode unspecified; N28.1 Cyst of kidney, acquired
CPT/HCPCS: 76770

== ENCOUNTER → 2024-05-02 10:32 | Outpatient (CLI) | payer OTHER, SELFPAY ==
[2022-01-02 17:58] VITALS: BMI 34.2
--- NOTE | 2024-05-02 10:33 | DI.CT.S_ITS ---
PROCEDURE: CT CHEST WO CON INDICATIONS: HX ASBESTOS EXP,CKD STAGE 4,HX NICOTINE DEPENDENCE TECHNIQUE: Noncontrast 5 mm thick sections acquired from the pulmonary apices to the posterior costophrenic angles. 1 mm lung window, 5 mm thick coronal and sagittal and 7 mm axial MIP reformats were then acquired. For radiation dose reduction, the following was used: automated exposure control, adjustment of mA and/or kV according to patient size. COMPARISON: None. FINDINGS: Image quality: Diagnostic Lungs and pleura: No dense airspace disease. No pleural effusions. There are micro nodules and granulomas, none overtly suspicious. No measurable pleural plaques identified. Mediastinum, heart, and esophagus: Coronary calcifications. No hiatal hernia. Annular calcifications. No pathologic lymph nodes by size criteria Chest wall and thyroid: Left thyroid nodule measures at least 3 centimeters. Chest wall is unremarkable Upper abdomen: Suspected calcifications at the tail of the pancreas partially seen Bones: Degenerative changes IMPRESSION: No suspicious focal pulmonary finding. Micro nodules and granulomas are present, not requiring dedicated follow-up per Fleischner guidelines. If the patient is considered clinically high risk, consider yearly chest CT versus enrollment in low-dose lung cancer screening. No focal calcified pleural plaques or pulmonary asbestosis by CT. Left thyroid nodule at least 3 centimeters. Nonurgent sonographic follow-up is advised. Partially seen possible calcifications at the pancreatic tail usually from prior inflammation. Consider dedicated pancreas protocol MRI if there is further clinical concern. Dictated by: Home Hsu M.D. on 05/02/2024 at 12:12 Approved by: Home Hsu M.D. on 05/02/2024 at 12:16
--- NOTE | 2024-05-02 10:34 | DI.US.S_ITS ---
PROCEDURE: US ABD AORTA ANEURYSM SCREEN INDICATIONS: HX ASBESTOS EXP,CKD STAGE 4,HX NICOTINE DEPENDENCE TECHNIQUE: Real time scanning was performed of the aorta and iliac arteries, with image documentation. COMPARISON: None. FINDINGS: Aorta: Proximal abdominal aorta not well visualized. Mid-aorta measures 2.1 cm. Distal aortic diameter is 1.7 cm. Iliac arteries: Right common iliac artery measures 1.0 cm. Left common iliac artery measures 0.9 cm. IMPRESSION: No evidence of AAA involving visualized abdominal aorta. Dictated by: Bacilio Rivero M.D. on 05/02/2024 at 12:44 Approved by: Bacilio Rivero M.D. on 05/02/2024 at 12:47
--- NOTE | 2024-05-02 10:34 | DI.RAD.S_ITS ---
PROCEDURE: XR DEXA AXIAL SKELETON INDICATIONS: HX ASBESTOS EXP,CKD STAGE 4,HX NICOTINE DEPENDENCE COMPARISON: None. FINDINGS: Lumbar Spine: Bone mineral density 1.493 g/cm2, T score 3.7. Left Hip: Bone mineral density 1.070 g/cm2, T score 1.0. Left Femoral Neck: Bone mineral density 0.814 g/cm2, T score -0.3. Right Hip: Bone mineral density 1.099 g/cm2, T score 1.3. Right Femoral Neck: Bone mineral density 0.949 g/cm2, T score 0.9. Fracture Risk Calculation (when applicable): 10-year fracture risk of a major osteoporotic fracture 3.9 percent and of a hip fracture 0.2 percent. (T score greater or equal to -1.0 to: NORMAL) (T score from -1.1 to -2.4: OSTEOPENIA) (T score less than or equal to -2.5: OSTEOPOROSIS) IMPRESSION: Normal bone mineral density by WHO classification. Follow-up guidelines as follows: Osteoporosis: Consider a repeat DEXA and Vertebral Fracture Assessment (VFA) exam in 2 years or sooner if medically necessary, to reassess this patient's status. Osteopenia: Consider a repeat DEXA in 2-3 years to reassess this patient's status, or if there is a new clinical indication. Normal: Consider a repeat DEXA in 5 years or sooner, or if there is a new clinical indication. All treatment decisions require clinical judgment and consideration of individual patient factors, including patient preferences, comorbidities, previous drug use, risk factors not captured in the FRAX model (e.g., frailty, falls, vitamin D deficiency, increased bone turnover, interval significant decline in bone density ) and possible under- or over-estimation of fracture risk by FRAX. In addition, the NOF Guide recommends that FDA-approved medical therapies be considered in postmenopausal women and men age >= 50 years with a: * Hip or vertebral (clinical or morphometric) fracture * T-score of <=-2.5 at the spine or hip * Ten-year fracture probability by FRAX of >= 3% for hip fracture or >=20% for major osteoporotic fracture. People with diagnosed cases of osteoporosis or at high risk for fracture should have regular bone mineral density tests. For patients eligible for Medicare, routine testing is allowed once every 2 years. The testing frequency can be increased to one year for patients who have rapidly progressing disease, those who are receiving or discontinuing medical therapy to restore bone mass, or have additional risk factors. Dictated by: Steven Lai M.D. on 05/02/2024 at 11:47 Approved by: Steven Lai M.D. on 05/02/2024 at 11:58
== END ==
PROVIDERS: Family Provider Family Medicine; PCP Family Medicine; Referring Provider Registered Nurse; Visit Provider Registered Nurse
DX: E04.1 Nontoxic single thyroid nodule (principal); N18.4 Chronic kidney disease, stage 4 (severe); Z77.090 Contact with and (suspected) exposure to asbestos; M85.89 Other specified disorders of bone density and structure, multiple sites; Z13.6 Encounter for screening for cardiovascular disorders; Z87.891 Personal history of nicotine dependence; I25.10 Atherosclerotic heart disease of native coronary artery without angina pectoris
CPT/HCPCS: 71250; 76706; 77080

== ENCOUNTER → 2024-07-31 15:23 | Outpatient (CLI) | payer MEDICARE, SELFPAY ==
[2022-01-02 17:58] VITALS: BMI 34.2
--- NOTE | 2024-07-31 | DI.US.S_ITS ---
PROCEDURE: US THYROID INDICATIONS: NONTOXIC SINGLE THYROID NODULE TECHNIQUE: Real-time scanning was performed of the thyroid gland, with image documentation. COMPARISON: None. FINDINGS: Thyroid: Right lobe measures 5.1 x 91.9 x 1.8 cm. Left lobe measures 7.3 x 2.5 x 3.0 cm. Isthmus is 0.4 cm thick. Echotexture is homogeneous. Nodule number: 1 Location: Left inferior Size: 3.4 x 2.8 x 2.7 cm Composition: Solid Echogenicity: Hypoechoic Shape: wider than tall. Margins: Smooth Echogenic foci: None Total points: 4 ACR TI-RADS category: 4 IMPRESSION: Left thyroid 3.4 cm nodule. Recommend ultrasound-guided fine-needle aspiration for further evaluation. ACR TI-RADS definitions and recommendations: TI-RADS 1 (benign): 0 points. FNA not needed. TI-RADS 2 (not suspicious): 2 points. FNA not needed. TI-RADS 3: 3 points. * FNA if 2.5 cm or larger, follow up if 1.5 cm or larger (at 1, 3, and 5 years). TI-RADS 4: 4-6 points. * FNA if 1.5 cm or larger, follow up if 1 cm or larger (at 1, 2, 3, and 5 years). TI-RADS 5: 7 points or more. * FNA if 1 cm or larger, follow up if 0.5 cm or larger (every year for 5 years). Approved by: Roland Rose M.D. on 07/31/2024 at 19:38
== END ==
PROVIDERS: Family Provider Family Medicine; PCP Registered Nurse; Referring Provider Registered Nurse; Visit Provider Registered Nurse
DX: E04.1 Nontoxic single thyroid nodule (principal)
CPT/HCPCS: 76536